=== PATIENT | female | born 1940 | race Caucasian/White ===

== ENCOUNTER 2020-01-29 23:32 | Emergency (ER) | payer MEDICARE, SELFPAY ==
[2020-01-29 23:46] VITALS: BP 166/75; PULSE 100; RESP 18; TEMP 36.6; O2SAT 96; BMI 25.8
[2020-01-30] VITALS (10 sets, daily range): BP systolic 113–154; BP diastolic 53–87; PULSE 59–91; RESP 14–18; O2SAT 93–98
--- NOTE | 2020-01-30 | CTR_ITS ---
PROCEDURE INFORMATION: Exam: CT Head Without Contrast Exam date and time: 01/30/2020 12:04 AM Age: 79 years old Clinical indication: Altered mental status/memory loss; Confusion or disorientation; Patient HX: Ams/confusion TECHNIQUE: Imaging protocol: Computed tomography of the head without contrast. Radiation optimization: All CT scans at this facility use at least one of these dose optimization techniques: automated exposure control; mA and/or kV adjustment per patient size (includes targeted exams where dose is matched to clinical indication); or iterative reconstruction. COMPARISON: CT head wo con* [id number] 07/22/2013 5:21 PM RADIATION DOSE METRICS: Total DLP (mGy-cm): 636.44 FINDINGS: Brain: Currently no visible evidence of acute intracranial pathologic process, trauma, or hemorrhage. 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 No mass effect. No generalized edema. No midline shift. Atrophic changes not inconsistent with the patient's chronological age. Ventricles: No ventriculomegaly. Bones/joints: Unremarkable. No acute fracture. Sinuses: Visualized sinuses are unremarkable. No fluid levels. Mastoid air cells: Visualized mastoid air cells are well aerated. Soft tissues: Unremarkable. CT/CT head wo con* [id number] IMPRESSION: No acute intracranial abnormality. Radiation Dose CTDIVOL = (mGy): DLP = 636.44 (mGy-cm)
--- NOTE | 2020-01-30 00:18 | ED_ITS ---
Documented by User: HAILEY Gregory 01/30/20 03:34 HPI - Altered Mental Status General: Chief Complaint: Altered Mental Status Stated Complaint: CONFUSION Time Seen by Provider: 01/29/20 23:56 History of Present Illness: HPI narrative: Patient is a 79-year-old female who comes to the ED via EMS for confusion. Patient has a past medical history of dementia/Alzheimer's. The EMS were called out by patient's neighbors. Neighbors found patient wandering in her yard and she was saying she was confused and did not know where her home was. Neighbor then called EMS to come pick her up and take her here to the ED for evaluation. During history and physical exam patient was confused and was a poor historian. She had trouble following and answering my questions. Patient also had some visual hallucinations in the ED room and said she saw some numbers floating on the wall and asked if I saw them 2. Patient's arrived here in the ED and I was able to get more details about patient's history with him. He said that patient has been having symptoms of dementia and Alzheimer's starting approximately 6 years ago. He said patient's mother and sister had Alzheimer's as well. He says she is slowly progressed and gotten worse and worse. They have been for 51 years and he takes care of patient and she does not know who he is. He said that patient had a rough day today and some of her dimensional's symptoms were worse today. He said he helped patient get ready for bed and put her in bed for the night. He then fell asleep and was awakened by a call from the emergency department here stating that his is currently in the ED and was found out wandering outside. said this was the first time she left the house wandering at night. Associated symptoms: Reports visual hallucinations (She sees numbers floating on the wall.) Review of Systems Const: Denies: fever(s), chills or fatigue Eyes: Denies: change in vision or eye discomfort ENMT: Denies: throat pain, odynophagia, nasal discharge or nasal congestion Card: Denies: chest pain, palpitations, edema, swelling of feet/ankles, dyspnea on exertion or orthopnea Resp: Denies: dyspnea, productive cough or non-productive cough GI: Denies: abdominal pain, nausea, vomiting, diarrhea, constipation or hematochezia : Denies: flank pain, dysuria or hematuria Musc: Denies: neck pain, back pain or extremity swelling Skin/Breast: Denies: rash or new lesions Neuro: Reports: confusion and difficulty communicating thoughts; Denies: headache(s), numbness in extremities or weakness in extremities Psych: Reports: visual hallucinations (She sees numbers floating on the wall.) Physical Exam Const: ORIENTATION/CONSCIOUSNESS: Yes oriented to person; not oriented to place and not oriented to time HENMT: COMMON NORMALS: normocephalic HEAD & SCALP: normocephalic MOUTH: Normal oral and palatal mucosa present THROAT: posterior oropharynx normal and uvula midline Neck/C-Spine: COMMON NORMALS: supple GENERAL: Yes normal visual inspection Resp: COMMON NORMALS: normal respiratory effort, No retractions, No use of accessory muscles and clear to auscultation bilaterally AUSCULTATION: clear to auscultation bilaterally Cardio: COMMON NORMALS: regular rate, regular rhythm, S1 normal heart sound present, S2 normal heart sound present, No gallops present (Cardio), No clicks present (Cardio), No murmurs present (Cardio) and Peripheral pulses 2+ throughout RATE: regular rate RHYTHM: regular rhythm HEART SOUNDS: S1 normal heart sound present and S2 normal heart sound present PERIPHERAL PULSES: Peripheral pulses 2+ throughout GI: COMMON NORMALS: Normal to inspection, nondistended, normoactive bowel sounds present, Soft to palpation, non-tender and no masses PALPATION: Yes Soft to palpation : COMMON NORMALS: Yes no CVA tenderness BLADDER/KIDNEY EXAM: Yes no CVA tenderness Back/Pelvis: COMMON NORMALS: no CVA tenderness Extremity: COMMON NORMALS: normal to inspection and no pedal edema Neuro: ENMA COMA SCALE: document GCS findings Kingman coma scale eye opening: Spontaneous Enma coma scale verbal response: Confused Kingman coma scale motor response: Obey commands Kingman coma scale total score: 14 COMMON NORMALS: CN's II-XII intact bilaterally, moves all extremities, no focal motor deficits and no sensory deficits noted SENSORIUM/ORIENTATION: Yes oriented to person, No oriented to place, No oriented to time and Yes Orientation impaired (Patient was oriented to person but was impaired with time and place questions.) COORDINATION/BALANCE: [id number] test normal (Patient was able to his likely perform the test, but did struggle understanding my instructions.) SENSORY EXAM: Yes extremities (sensation intact) MOTOR EXAM: 5/5 motor strength present throughout COORDINATION: [id number] test normal (Patient was able to his likely perform the test, but did struggle understanding my instructions.) OTHER: During physical exam patient was confused and had trouble answering some of my questions. She was able to follow most of my instructions during the exam but struggled with certain instructions that involved multiple steps. Psych: THOUGHT PROCESS: confused THOUGHT CONTENT: Yes Hallucination(s) present visual (Patient was asking me if I saw numbers floating on the wall.) Skin: COMMON NORMALS: no rashes or lesions noted GENERAL SKIN EXAM: no rashes or lesions noted Course Reevaluation(s): Reevaluation #1: Patient is starting to act out and wandering the halls. Discussed with about power of insurance defense attorney and he states that he does not have power of insurance defense attorney for patient. I talked with Dr. Miller and patient is going to be put on a 96-hour hold. Time: 03:14 Vital Signs: Vital signs: Vital Signs Temperature 97.8 F 01/29/20 23:46 Pulse Rate 67 01/30/20 13:00 Respiratory Rate 18 01/30/20 13:00 Blood Pressure 124/72 01/30/20 13:00 Pulse Oximetry 93 01/30/20 13:00 MDM - Altered Mental Status MDM Narrative: Medical decision making narrative: Patient is a 79-year-old female comes to the ED via EMS for confusion. Patient was found outside in her neighborhood wandering and did not know how to get home. Patient's was made aware and came to the ED. said that patient has been struggling with Alzheimer's/dementia for the past 6 years. He says it has progressed and gotten worse. does not have power of insurance defense attorney over . Here in the ED patient was very confused and started acting out and wandering here in the ED. CT of the head showed no acute findings, CBC, CMP and UA were unremarkable. has been watching and taking care of patient and he said he is not sure how to take care of her anymore as her Alzheimer's/dementia has progressed. 96- hour hold paperwork will be filled out on patient. Lab Data: Attestation: I reviewed the patient's lab results. Labs: Lab Results 01/30/20 01/30/20 01/30/20 Range/Units 02:10 02:10 02:10 WBC 5.2 (4.0-10.0) 10^3/ uL RBC 4.44 (4.1-5.3) 10^6/u L Hgb 13.8 (11.5-15.3) g/dL Hct 41.5 (37.0-47.0) % MCV 93.5 (81-99) fL MCH 31.1 (28.0-34.0) pg MCHC 33.3 (30.0-36.0) g/dL RDW 12.7 (12.1-15.1) % Plt Count 183 (130-400) 10^3/c mm MPV 11.5 H (7.4-10.4) fL Neut % (Auto) 62.0 % Lymph % (Auto) 23.7 % Jewell % (Auto) 11.4 % Eos % (Auto) 1.7 % Baso % (Auto) 1.0 % Neut # (Auto) 3.22 (1.8-7.7) 10^3/u L Lymph # (Auto) 1.2 (0.8-4.8) 10^3/u L Jewell # (Auto) 0.6 (0.2-0.9) 10^3/u L Eos # (Auto) 0.1 (0.0-0.8) 10^3/u L Baso # (Auto) 0.1 (0.0-0.1) 10^3/u L Nucleated RBC % (a uto) 0 % Nucleated RBCs # 0.0 /100WBC Sodium 139 (136-145) mmol/L Potassium 3.9 (3.5-5.1) mmol/L Chloride 104 (98-107) mmol/L Carbon Dioxide 22 (22-29) mmol/L Anion Gap 16.9 (5-19) BUN 18 (8-23) mg/dL Creatinine 0.7 (0.5-0.9) mg/dL GFR Calculation Not Reportable Glucose 172 H (65-115) mg/dL Calculated Osmolal ity 289 (285-295) mOsm/k g Calcium 9.7 (8.5-10.5) mg/dL Total Bilirubin 0.5 (0.15-1.2) mg/dL AST 31 (0-32) U/L ALT 37 H (0-33) U/L Alkaline Phosphata se 75 (35-105) IU/L Total Protein 7.8 (6.6-8.7) g/dL Albumin 4.6 (3.5-5.2) g/dL Globulin 3.2 (1.3-4.6) g/dL TSH (0.27-4.20) uIU/ mL Urine Color Yellow (Yellow) Urine Appearance Clear (CLEAR) Urine pH 5 (5-7) Ur Specific Gravit y 1.030 (1.005-1.030) Urine Protein Neg (Negative) Urine Glucose (UA) 2+ (Normal) Urine Ketones 1+ H (Negative) Urine Blood 2+ H (Negative) Urine Nitrate Negative (Negative) Urine Bilirubin Neg (NEGATIVE) Urine Urobilinogen Norm (Negative) mg/dL Ur Leukocyte Ember ase Trace H (Negative) Urine RBC 5-10 H (0-2) /hpf Urine WBC 0-4 H (0-5) /hpf Ur Squamous Epith Cells 5-10 H (0-5) Calcium Oxalate Cr ystal 40-55 H /hpf Amorphous Sediment 1+ Urine Bacteria Trace (NONE) Hyaline Casts 0-4 H Coarse Granular Ca sts 0-4 H /lpf Urine Mucus 2+ Salicylates (3-10) mg/dL Urine Opiates Scre en (Negative) ng/mL Acetaminophen (10-30) ug/mL Ur Barbiturates Sc reen (Negative) ng/mL Ur Phencyclidine S crn (Negative) ng/mL Ur Amphetamines Sc reen (Negative) ng/mL U Benzodiazepines Scrn (Negative) ng/mL Urine Cocaine Scre en (Negative) ng/mL U Marijuana (THC) Screen (Negative) ng/mL SARS-CoV-2 Ag (Rap id) (Negative) 01/30/20 01/30/20 01/30/20 Range/Units 02:10 02:10 02:10 WBC (4.0-10.0) 10^3/ uL RBC (4.1-5.3) 10^6/u L Hgb (11.5-15.3) g/dL Hct (37.0-47.0) % MCV (81-99) fL MCH (28.0-34.0) pg MCHC (30.0-36.0) g/dL RDW (12.1-15.1) % Plt Count (130-400) 10^3/c mm MPV (7.4-10.4) fL Neut % (Auto) % Lymph % (Auto) % Jewell % (Auto) % Eos % (Auto) % Baso % (Auto) % Neut # (Auto) (1.8-7.7) 10^3/u L Lymph # (Auto) (0.8-4.8) 10^3/u L Jewell # (Auto) (0.2-0.9) 10^3/u L Eos # (Auto) (0.0-0.8) 10^3/u L Baso # (Auto) (0.0-0.1) 10^3/u L Nucleated RBC % (a uto) % Nucleated RBCs # /100WBC Sodium (136-145) mmol/L Potassium (3.5-5.1) mmol/L Chloride (98-107) mmol/L Carbon Dioxide (22-29) mmol/L Anion Gap (5-19) BUN (8-23) mg/dL Creatinine (0.5-0.9) mg/dL GFR Calculation Glucose (65-115) mg/dL Calculated Osmolal ity (285-295) mOsm/k g Calcium (8.5-10.5) mg/dL Total Bilirubin (0.15-1.2) mg/dL AST (0-32) U/L ALT (0-33) U/L Alkaline Phosphata se (35-105) IU/L Total Protein (6.6-8.7) g/dL Albumin (3.5-5.2) g/dL Globulin (1.3-4.6) g/dL TSH 2.98 (0.27-4.20) uIU/ mL Urine Color (Yellow) Urine Appearance (CLEAR) Urine pH (5-7) Ur Specific Gravit y (1.005-1.030) Urine Protein (Negative) Urine Glucose (UA) (Normal) Urine Ketones (Negative) Urine Blood (Negative) Urine Nitrate (Negative) Urine Bilirubin (NEGATIVE) Urine Urobilinogen (Negative) mg/dL Ur Leukocyte Ember ase (Negative) Urine RBC (0-2) /hpf Urine WBC (0-5) /hpf Ur Squamous Epith Cells (0-5) Calcium Oxalate Cr ystal /hpf Amorphous Sediment Urine Bacteria (NONE) Hyaline Casts Coarse Granular Ca sts /lpf Urine Mucus Salicylates < 0.3 L (3-10) mg/dL Urine Opiates Scre en Negative (Negative) ng/mL Acetaminophen < 5.0 L (10-30) ug/mL Ur Barbiturates Sc reen Negative (Negative) ng/mL Ur Phencyclidine S crn Negative (Negative) ng/mL Ur Amphetamines Sc reen Negative (Negative) ng/mL U Benzodiazepines Scrn Negative (Negative) ng/mL Urine Cocaine Scre en Negative (Negative) ng/mL U Marijuana (THC) Screen Negative (Negative) ng/mL SARS-CoV-2 Ag (Rap id) (Negative) 01/30/20 Range/Units 06:30 WBC (4.0-10.0) 10^3/ uL RBC (4.1-5.3) 10^6/u L Hgb (11.5-15.3) g/dL Hct (37.0-47.0) % MCV (81-99) fL MCH (28.0-34.0) pg MCHC (30.0-36.0) g/dL RDW (12.1-15.1) % Plt Count (130-400) 10^3/c mm MPV (7.4-10.4) fL Neut % (Auto) % Lymph % (Auto) % Jewell % (Auto) % Eos % (Auto) % Baso % (Auto) % Neut # (Auto) (1.8-7.7) 10^3/u L Lymph # (Auto) (0.8-4.8) 10^3/u L Jewell # (Auto) (0.2-0.9) 10^3/u L Eos # (Auto) (0.0-0.8) 10^3/u L Baso # (Auto) (0.0-0.1) 10^3/u L Nucleated RBC % (a uto) % Nucleated RBCs # /100WBC Sodium (136-145) mmol/L Potassium (3.5-5.1) mmol/L Chloride (98-107) mmol/L Carbon Dioxide (22-29) mmol/L Anion Gap (5-19) BUN (8-23) mg/dL Creatinine (0.5-0.9) mg/dL GFR Calculation Glucose (65-115) mg/dL Calculated Osmolal ity (285-295) mOsm/k g Calcium (8.5-10.5) mg/dL Total Bilirubin (0.15-1.2) mg/dL AST (0-32) U/L ALT (0-33) U/L Alkaline Phosphata se (35-105) IU/L Total Protein (6.6-8.7) g/dL Albumin (3.5-5.2) g/dL Globulin (1.3-4.6) g/dL TSH (0.27-4.20) uIU/ mL Urine Color (Yellow) Urine Appearance (CLEAR) Urine pH (5-7) Ur Specific Gravit y (1.005-1.030) Urine Protein (Negative) Urine Glucose (UA) (Normal) Urine Ketones (Negative) Urine Blood (Negative) Urine Nitrate (Negative) Urine Bilirubin (NEGATIVE) Urine Urobilinogen (Negative) mg/dL Ur Leukocyte Ember ase (Negative) Urine RBC (0-2) /hpf Urine WBC (0-5) /hpf Ur Squamous Epith Cells (0-5) Calcium Oxalate Cr ystal /hpf Amorphous Sediment Urine Bacteria (NONE) Hyaline Casts Coarse Granular Ca sts /lpf Urine Mucus Salicylates (3-10) mg/dL Urine Opiates Scre en (Negative) ng/mL Acetaminophen (10-30) ug/mL Ur Barbiturates Sc reen (Negative) ng/mL Ur Phencyclidine S crn (Negative) ng/mL Ur Amphetamines Sc reen (Negative) ng/mL U Benzodiazepines Scrn (Negative) ng/mL Urine Cocaine Scre en (Negative) ng/mL U Marijuana (THC) Screen (Negative) ng/mL SARS-CoV-2 Ag (Rap id) Negative (Negative) Imaging Data^: CT Head: Attestation: I personally reviewed and interpreted this imaging study as follows: Radiologist's impression: [address] [place] [address] CT Scan Report Signed Patient: Maria Ines Jackson Unit #: [id number] : [id number] Age/Sex: 79 / F ADM Date: 01/29/20 Loc: ER Room/Bed: Attending Dr: Ordering Provider/Ordering MD: Jae Muller Date of Service: 01/30/20 Procedure(s): CT head wo con* [id number] Accession Number(s): [id number] Report Number: [id number] PROCEDURE INFORMATION: Exam: CT Head Without Contrast Exam date and time: 01/30/2020 12:04 AM Age: 79 years old Clinical indication: Altered mental status/memory loss; Confusion or disorientation; Patient HX: Ams/confusion TECHNIQUE: Imaging protocol: Computed tomography of the head without contrast. Radiation optimization: All CT scans at this facility use at least one of these dose optimization techniques: automated exposure control; mA and/or kV adjustment per patient size (includes targeted exams where dose is matched to clinical indication); or iterative reconstruction. COMPARISON: CT head wo con* [id number] 07/22/2013 5:21 PM RADIATION DOSE METRICS: Total DLP (mGy-cm): 636.44 FINDINGS: Brain: Currently no visible evidence of acute intracranial pathologic process, trauma, or hemorrhage. 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 No mass effect. No generalized edema. No midline shift. Atrophic changes not inconsistent with the patient's chronological age. Ventricles: No ventriculomegaly. Bones/joints: Unremarkable. No acute fracture. Sinuses: Visualized sinuses are unremarkable. No fluid levels. Mastoid air cells: Visualized mastoid air cells are well aerated. Soft tissues: Unremarkable. CT/CT head wo con* [id number] IMPRESSION: No acute intracranial abnormality. Radiation Dose CTDIVOL = (mGy): DLP = 636.44 (mGy-cm) Dictated By: Devin Velazquez Signed By: Devin Velazquez Signed Date/Time: 01/30/2037 DD/ CXR: Attestation: I personally reviewed and interpreted this imaging study as follows: My impression: no acute findings. Discharge Plan Discharge Patient Disposition: Xfer Other Clinical Impression: Dementia, Hallucinations Condition: Stable Discharge Orders: Discharge Order (Routine); Ordered 01/30/20 Ordered By: Jae Muller Patient Instructions: Alzheimer Disease (GEN), Dementia (ED) Activity Restrictions/Additional Instructions: Follow-up with medical provider as directed in 5 to 7 days for reevaluation. Discussed with your doctor about options of medical management for Alzheimer's/dementia. Continue taking home medications as previously prescribed. Return to the ER or your medical provider if condition worsens. Please read and understand discharge instructions. If any questions, please ask. Sign Out Sign Out Data: Patient Sign Out occurred on 01/30/20 at 06:41. Patient's care was discussed, and care was transferred from to Nicole Pollack. Coding Level of Care Code ED Weigher And Crusher for 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 Documented by User: Dennis Miller DO 01/30/20 05:44 HPI - Altered Mental Status General: Chief Complaint: Altered Mental Status Stated Complaint: CONFUSION Time Seen by Provider: 01/29/20 23:56 Course Vital Signs: Vital signs: Vital Signs Temperature 97.8 F 01/29/20 23:46 Pulse Rate 67 01/30/20 13:00 Respiratory Rate 18 01/30/20 13:00 Blood Pressure 124/72 01/30/20 13:00 Pulse Oximetry 93 01/30/20 13:00 MDM - Altered Mental Status MDM Narrative: Medical decision making narrative: 79-year-old lady with a history of dementia. She was originally seen by Mr. Yohana PA-C. I agree with his history, evaluation, and work-up. This lady has had worsening dementia for [address] head is negative for acute problems. Her laboratory is benign. Her urinalysis is negative. As said above, this is the first time she is left the house at night, which is dangerous for her. She is at this point a danger to herself, and her her is somewhat frail. He cannot handle her at home like this. Medically, she is stable. We will try to find this patient a geriatric psychiatry bed. She will need treatment, and possibly placement in a long-term care facility. As my shift is ending, will be checked out to Dr. Pollack at shift change. Lab Data: Labs: Lab Results 01/30/20 01/30/20 01/30/20 Range/Units 02:10 02:10 02:10 WBC 5.2 (4.0-10.0) 10^3/ uL RBC 4.44 (4.1-5.3) 10^6/u L Hgb 13.8 (11.5-15.3) g/dL Hct 41.5 (37.0-47.0) % MCV 93.5 (81-99) fL MCH 31.1 (28.0-34.0) pg MCHC 33.3 (30.0-36.0) g/dL RDW 12.7 (12.1-15.1) % Plt Count 183 (130-400) 10^3/c mm MPV 11.5 H (7.4-10.4) fL Neut % (Auto) 62.0 % Lymph % (Auto) 23.7 % Jewell % (Auto) 11.4 % Eos % (Auto) 1.7 % Baso % (Auto) 1.0 % Neut # (Auto) 3.22 (1.8-7.7) 10^3/u L Lymph # (Auto) 1.2 (0.8-4.8) 10^3/u L Jewell # (Auto) 0.6 (0.2-0.9) 10^3/u L Eos # (Auto) 0.1 (0.0-0.8) 10^3/u L Baso # (Auto) 0.1 (0.0-0.1) 10^3/u L Nucleated RBC % (a uto) 0 % Nucleated RBCs # 0.0 /100WBC Sodium 139 (136-145) mmol/L Potassium 3.9 (3.5-5.1) mmol/L Chloride 104 (98-107) mmol/L Carbon Dioxide 22 (22-29) mmol/L Anion Gap 16.9 (5-19) BUN 18 (8-23) mg/dL Creatinine 0.7 (0.5-0.9) mg/dL GFR Calculation Not Reportable Glucose 172 H (65-115) mg/dL Calculated Osmolal ity 289 (285-295) mOsm/k g Calcium 9.7 (8.5-10.5) mg/dL Total Bilirubin 0.5 (0.15-1.2) mg/dL AST 31 (0-32) U/L ALT 37 H (0-33) U/L Alkaline Phosphata se 75 (35-105) IU/L Total Protein 7.8 (6.6-8.7) g/dL Albumin 4.6 (3.5-5.2) g/dL Globulin 3.2 (1.3-4.6) g/dL TSH (0.27-4.20) uIU/ mL Urine Color Yellow (Yellow) Urine Appearance Clear (CLEAR) Urine pH 5 (5-7) Ur Specific Gravit y 1.030 (1.005-1.030) Urine Protein Neg (Negative) Urine Glucose (UA) 2+ (Normal) Urine Ketones 1+ H (Negative) Urine Blood 2+ H (Negative) Urine Nitrate Negative (Negative) Urine Bilirubin Neg (NEGATIVE) Urine Urobilinogen Norm (Negative) mg/dL Ur Leukocyte Ember ase Trace H (Negative) Urine RBC 5-10 H (0-2) /hpf Urine WBC 0-4 H (0-5) /hpf Ur Squamous Epith Cells 5-10 H (0-5) Calcium Oxalate Cr ystal 40-55 H /hpf Amorphous Sediment 1+ Urine Bacteria Trace (NONE) Hyaline Casts 0-4 H Coarse Granular Ca sts 0-4 H /lpf Urine Mucus 2+ Salicylates (3-10) mg/dL Urine Opiates Scre en (Negative) ng/mL Acetaminophen (10-30) ug/mL Ur Barbiturates Sc reen (Negative) ng/mL Ur Phencyclidine S crn (Negative) ng/mL Ur Amphetamines Sc reen (Negative) ng/mL U Benzodiazepines Scrn (Negative) ng/mL Urine Cocaine Scre en (Negative) ng/mL U Marijuana (THC) Screen (Negative) ng/mL SARS-CoV-2 Ag (Rap id) (Negative) 01/30/20 01/30/20 01/30/20 Range/Units 02:10 02:10 02:10 WBC (4.0-10.0) 10^3/ uL RBC (4.1-5.3) 10^6/u L Hgb (11.5-15.3) g/dL Hct (37.0-47.0) % MCV (81-99) fL MCH (28.0-34.0) pg MCHC (30.0-36.0) g/dL RDW (12.1-15.1) % Plt Count (130-400) 10^3/c mm MPV (7.4-10.4) fL Neut % (Auto) % Lymph % (Auto) % Jewell % (Auto) % Eos % (Auto) % Baso % (Auto) % Neut # (Auto) (1.8-7.7) 10^3/u L Lymph # (Auto) (0.8-4.8) 10^3/u L Jewell # (Auto) (0.2-0.9) 10^3/u L Eos # (Auto) (0.0-0.8) 10^3/u L Baso # (Auto) (0.0-0.1) 10^3/u L Nucleated RBC % (a uto) % Nucleated RBCs # /100WBC Sodium (136-145) mmol/L Potassium (3.5-5.1) mmol/L Chloride (98-107) mmol/L Carbon Dioxide (22-29) mmol/L Anion Gap (5-19) BUN (8-23) mg/dL Creatinine (0.5-0.9) mg/dL GFR Calculation Glucose (65-115) mg/dL Calculated Osmolal ity (285-295) mOsm/k g Calcium (8.5-10.5) mg/dL Total Bilirubin (0.15-1.2) mg/dL AST (0-32) U/L ALT (0-33) U/L Alkaline Phosphata se (35-105) IU/L Total Protein (6.6-8.7) g/dL Albumin (3.5-5.2) g/dL Globulin (1.3-4.6) g/dL TSH 2.98 (0.27-4.20) uIU/ mL Urine Color (Yellow) Urine Appearance (CLEAR) Urine pH (5-7) Ur Specific Gravit y (1.005-1.030) Urine Protein (Negative) Urine Glucose (UA) (Normal) Urine Ketones (Negative) Urine Blood (Negative) Urine Nitrate (Negative) Urine Bilirubin (NEGATIVE) Urine Urobilinogen (Negative) mg/dL Ur Leukocyte Ember ase (Negative) Urine RBC (0-2) /hpf Urine WBC (0-5) /hpf Ur Squamous Epith Cells (0-5) Calcium Oxalate Cr ystal /hpf Amorphous Sediment Urine Bacteria (NONE) Hyaline Casts Coarse Granular Ca sts /lpf Urine Mucus Salicylates < 0.3 L (3-10) mg/dL Urine Opiates Scre en Negative (Negative) ng/mL Acetaminophen < 5.0 L (10-30) ug/mL Ur Barbiturates Sc reen Negative (Negative) ng/mL Ur Phencyclidine S crn Negative (Negative) ng/mL Ur Amphetamines Sc reen Negative (Negative) ng/mL U Benzodiazepines Scrn Negative (Negative) ng/mL Urine Cocaine Scre en Negative (Negative) ng/mL U Marijuana (THC) Screen Negative (Negative) ng/mL SARS-CoV-2 Ag (Rap id) (Negative) 01/30/20 Range/Units 06:30 WBC (4.0-10.0) 10^3/ uL RBC (4.1-5.3) 10^6/u L Hgb (11.5-15.3) g/dL Hct (37.0-47.0) % MCV (81-99) fL MCH (28.0-34.0) pg MCHC (30.0-36.0) g/dL RDW (12.1-15.1) % Plt Count (130-400) 10^3/c mm MPV (7.4-10.4) fL Neut % (Auto) % Lymph % (Auto) % Jewell % (Auto) % Eos % (Auto) % Baso % (Auto) % Neut # (Auto) (1.8-7.7) 10^3/u L Lymph # (Auto) (0.8-4.8) 10^3/u L Jewell # (Auto) (0.2-0.9) 10^3/u L Eos # (Auto) (0.0-0.8) 10^3/u L Baso # (Auto) (0.0-0.1) 10^3/u L Nucleated RBC % (a uto) % Nucleated RBCs # /100WBC Sodium (136-145) mmol/L Potassium (3.5-5.1) mmol/L Chloride (98-107) mmol/L Carbon Dioxide (22-29) mmol/L Anion Gap (5-19) BUN (8-23) mg/dL Creatinine (0.5-0.9) mg/dL GFR Calculation Glucose (65-115) mg/dL Calculated Osmolal ity (285-295) mOsm/k g Calcium (8.5-10.5) mg/dL Total Bilirubin (0.15-1.2) mg/dL AST (0-32) U/L ALT (0-33) U/L Alkaline Phosphata se (35-105) IU/L Total Protein (6.6-8.7) g/dL Albumin (3.5-5.2) g/dL Globulin (1.3-4.6) g/dL TSH (0.27-4.20) uIU/ mL Urine Color (Yellow) Urine Appearance (CLEAR) Urine pH (5-7) Ur Specific Gravit y (1.005-1.030) Urine Protein (Negative) Urine Glucose (UA) (Normal) Urine Ketones (Negative) Urine Blood (Negative) Urine Nitrate (Negative) Urine Bilirubin (NEGATIVE) Urine Urobilinogen (Negative) mg/dL Ur Leukocyte Ember ase (Negative) Urine RBC (0-2) /hpf Urine WBC (0-5) /hpf Ur Squamous Epith Cells (0-5) Calcium Oxalate Cr ystal /hpf Amorphous Sediment Urine Bacteria (NONE) Hyaline Casts Coarse Granular Ca sts /lpf Urine Mucus Salicylates (3-10) mg/dL Urine Opiates Scre en (Negative) ng/mL Acetaminophen (10-30) ug/mL Ur Barbiturates Sc reen (Negative) ng/mL Ur Phencyclidine S crn (Negative) ng/mL Ur Amphetamines Sc reen (Negative) ng/mL U Benzodiazepines Scrn (Negative) ng/mL Urine Cocaine Scre en (Negative) ng/mL U Marijuana (THC) Screen (Negative) ng/mL SARS-CoV-2 Ag (Rap id) Negative (Negative) Discharge Plan Discharge Patient Disposition: Xfer Other Clinical Impression: Dementia, Hallucinations Condition: Stable Discharge Orders: Discharge Order (Routine); Ordered 01/30/20 Ordered By: Jae Muller Patient Instructions: Alzheimer Disease (GEN), Dementia (ED) Activity Restrictions/Additional Instructions: Follow-up with medical provider as directed in 5 to 7 days for reevaluation. Discussed with your doctor about options of medical management for Alzheimer's/dementia. Continue taking home medications as previously prescribed. Return to the ER or your medical provider if condition worsens. Please read and understand discharge instructions. If any questions, please ask. Sign Out Sign Out Data: Patient Sign Out occurred on 01/30/20 at 06:41. Patient's care was discussed, and care was transferred from to Nicole Pollack. Coding Level of Care Code ED Weigher And Crusher for 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 Documented by User: Nicole Pollack 01/30/20 13:23 HPI - Altered Mental Status General: Chief Complaint: Altered Mental Status Stated Complaint: CONFUSION Time Seen by Provider: 01/29/20 23:56 Course Vital Signs: Vital signs: Vital Signs Temperature 97.8 F 01/29/20 23:46 Pulse Rate 67 01/30/20 13:00 Respiratory Rate 18 01/30/20 13:00 Blood Pressure 124/72 01/30/20 13:00 Pulse Oximetry 93 01/30/20 13:00 MDM - Altered Mental Status MDM Narrative: Medical decision making narrative: 0708 -care seen by me at change of shift from Dr. Miller. Please see his note along with Jae Muller's note for their history, physical exam and medical decision-making notes. Currently the patient is resting comfortably. She has no complaints or symptoms. Still awaiting a few labs to completely medically clear her and nursing plans to begin looking for [place] psychiatric placement. Patient will likely need this as he has dementia with acute decompensation with wandering outside the home and hallucinations. Patient is medically cleared for her labs. He is asymptomatic when it comes to covert infections. Her rapid test is negative here. She is safe for transfer and psychiatric hospitalization. Nursing will continue to look for placement. 1322 -the case was reviewed with Mr. Jennifer HART and Dr. Weinberg, they agreed accept the patient in transfer. Lab Data: Labs: Lab Results 01/30/20 01/30/20 01/30/20 Range/Units 02:10 02:10 02:10 WBC 5.2 (4.0-10.0) 10^3/ uL RBC 4.44 (4.1-5.3) 10^6/u L Hgb 13.8 (11.5-15.3) g/dL Hct 41.5 (37.0-47.0) % MCV 93.5 (81-99) fL MCH 31.1 (28.0-34.0) pg MCHC 33.3 (30.0-36.0) g/dL RDW 12.7 (12.1-15.1) % Plt Count 183 (130-400) 10^3/c mm MPV 11.5 H (7.4-10.4) fL Neut % (Auto) 62.0 % Lymph % (Auto) 23.7 % Jewell % (Auto) 11.4 % Eos % (Auto) 1.7 % Baso % (Auto) 1.0 % Neut # (Auto) 3.22 (1.8-7.7) 10^3/u L Lymph # (Auto) 1.2 (0.8-4.8) 10^3/u L Jewell # (Auto) 0.6 (0.2-0.9) 10^3/u L Eos # (Auto) 0.1 (0.0-0.8) 10^3/u L Baso # (Auto) 0.1 (0.0-0.1) 10^3/u L Nucleated RBC % (a uto) 0 % Nucleated RBCs # 0.0 /100WBC Sodium 139 (136-145) mmol/L Potassium 3.9 (3.5-5.1) mmol/L Chloride 104 (98-107) mmol/L Carbon Dioxide 22 (22-29) mmol/L Anion Gap 16.9 (5-19) BUN 18 (8-23) mg/dL Creatinine 0.7 (0.5-0.9) mg/dL GFR Calculation Not Reportable Glucose 172 H (65-115) mg/dL Calculated Osmolal ity 289 (285-295) mOsm/k g Calcium 9.7 (8.5-10.5) mg/dL Total Bilirubin 0.5 (0.15-1.2) mg/dL AST 31 (0-32) U/L ALT 37 H (0-33) U/L Alkaline Phosphata se 75 (35-105) IU/L Total Protein 7.8 (6.6-8.7) g/dL Albumin 4.6 (3.5-5.2) g/dL Globulin 3.2 (1.3-4.6) g/dL TSH (0.27-4.20) uIU/ mL Urine Color Yellow (Yellow) Urine Appearance Clear (CLEAR) Urine pH 5 (5-7) Ur Specific Gravit y 1.030 (1.005-1.030) Urine Protein Neg (Negative) Urine Glucose (UA) 2+ (Normal) Urine Ketones 1+ H (Negative) Urine Blood 2+ H (Negative) Urine Nitrate Negative (Negative) Urine Bilirubin Neg (NEGATIVE) Urine Urobilinogen Norm (Negative) mg/dL Ur Leukocyte Ember ase Trace H (Negative) Urine RBC 5-10 H (0-2) /hpf Urine WBC 0-4 H (0-5) /hpf Ur Squamous Epith Cells 5-10 H (0-5) Calcium Oxalate Cr ystal 40-55 H /hpf Amorphous Sediment 1+ Urine Bacteria Trace (NONE) Hyaline Casts 0-4 H Coarse Granular Ca sts 0-4 H /lpf Urine Mucus 2+ Salicylates (3-10) mg/dL Urine Opiates Scre en (Negative) ng/mL Acetaminophen (10-30) ug/mL Ur Barbiturates Sc reen (Negative) ng/mL Ur Phencyclidine S crn (Negative) ng/mL Ur Amphetamines Sc reen (Negative) ng/mL U Benzodiazepines Scrn (Negative) ng/mL Urine Cocaine Scre en (Negative) ng/mL U Marijuana (THC) Screen (Negative) ng/mL SARS-CoV-2 Ag (Rap id) (Negative) 01/30/20 01/30/20 01/30/20 Range/Units 02:10 02:10 02:10 WBC (4.0-10.0) 10^3/ uL RBC (4.1-5.3) 10^6/u L Hgb (11.5-15.3) g/dL Hct (37.0-47.0) % MCV (81-99) fL MCH (28.0-34.0) pg MCHC (30.0-36.0) g/dL RDW (12.1-15.1) % Plt Count (130-400) 10^3/c mm MPV (7.4-10.4) fL Neut % (Auto) % Lymph % (Auto) % Jewell % (Auto) % Eos % (Auto) % Baso % (Auto) % Neut # (Auto) (1.8-7.7) 10^3/u L Lymph # (Auto) (0.8-4.8) 10^3/u L Jewell # (Auto) (0.2-0.9) 10^3/u L Eos # (Auto) (0.0-0.8) 10^3/u L Baso # (Auto) (0.0-0.1) 10^3/u L Nucleated RBC % (a uto) % Nucleated RBCs # /100WBC Sodium (136-145) mmol/L Potassium (3.5-5.1) mmol/L Chloride (98-107) mmol/L Carbon Dioxide (22-29) mmol/L Anion Gap (5-19) BUN (8-23) mg/dL Creatinine (0.5-0.9) mg/dL GFR Calculation Glucose (65-115) mg/dL Calculated Osmolal ity (285-295) mOsm/k g Calcium (8.5-10.5) mg/dL Total Bilirubin (0.15-1.2) mg/dL AST (0-32) U/L ALT (0-33) U/L Alkaline Phosphata se (35-105) IU/L Total Protein (6.6-8.7) g/dL Albumin (3.5-5.2) g/dL Globulin (1.3-4.6) g/dL TSH 2.98 (0.27-4.20) uIU/ mL Urine Color (Yellow) Urine Appearance (CLEAR) Urine pH (5-7) Ur Specific Gravit y (1.005-1.030) Urine Protein (Negative) Urine Glucose (UA) (Normal) Urine Ketones (Negative) Urine Blood (Negative) Urine Nitrate (Negative) Urine Bilirubin (NEGATIVE) Urine Urobilinogen (Negative) mg/dL Ur Leukocyte Ember ase (Negative) Urine RBC (0-2) /hpf Urine WBC (0-5) /hpf Ur Squamous Epith Cells (0-5) Calcium Oxalate Cr ystal /hpf Amorphous Sediment Urine Bacteria (NONE) Hyaline Casts Coarse Granular Ca sts /lpf Urine Mucus Salicylates < 0.3 L (3-10) mg/dL Urine Opiates Scre en Negative (Negative) ng/mL Acetaminophen < 5.0 L (10-30) ug/mL Ur Barbiturates Sc reen Negative (Negative) ng/mL Ur Phencyclidine S crn Negative (Negative) ng/mL Ur Amphetamines Sc reen Negative (Negative) ng/mL U Benzodiazepines Scrn Negative (Negative) ng/mL Urine Cocaine Scre en Negative (Negative) ng/mL U Marijuana (THC) Screen Negative (Negative) ng/mL SARS-CoV-2 Ag (Rap id) (Negative) 01/30/20 Range/Units 06:30 WBC (4.0-10.0) 10^3/ uL RBC (4.1-5.3) 10^6/u L Hgb (11.5-15.3) g/dL Hct (37.0-47.0) % MCV (81-99) fL MCH (28.0-34.0) pg MCHC (30.0-36.0) g/dL RDW (12.1-15.1) % Plt Count (130-400) 10^3/c mm MPV (7.4-10.4) fL Neut % (Auto) % Lymph % (Auto) % Jewell % (Auto) % Eos % (Auto) % Baso % (Auto) % Neut # (Auto) (1.8-7.7) 10^3/u L Lymph # (Auto) (0.8-4.8) 10^3/u L Jewell # (Auto) (0.2-0.9) 10^3/u L Eos # (Auto) (0.0-0.8) 10^3/u L Baso # (Auto) (0.0-0.1) 10^3/u L Nucleated RBC % (a uto) % Nucleated RBCs # /100WBC Sodium (136-145) mmol/L Potassium (3.5-5.1) mmol/L Chloride (98-107) mmol/L Carbon Dioxide (22-29) mmol/L Anion Gap (5-19) BUN (8-23) mg/dL Creatinine (0.5-0.9) mg/dL GFR Calculation Glucose (65-115) mg/dL Calculated Osmolal ity (285-295) mOsm/k g Calcium (8.5-10.5) mg/dL Total Bilirubin (0.15-1.2) mg/dL AST (0-32) U/L ALT (0-33) U/L Alkaline Phosphata se (35-105) IU/L Total Protein (6.6-8.7) g/dL Albumin (3.5-5.2) g/dL Globulin (1.3-4.6) g/dL TSH (0.27-4.20) uIU/ mL Urine Color (Yellow) Urine Appearance (CLEAR) Urine pH (5-7) Ur Specific Gravit y (1.005-1.030) Urine Protein (Negative) Urine Glucose (UA) (Normal) Urine Ketones (Negative) Urine Blood (Negative) Urine Nitrate (Negative) Urine Bilirubin (NEGATIVE) Urine Urobilinogen (Negative) mg/dL Ur Leukocyte Ember ase (Negative) Urine RBC (0-2) /hpf Urine WBC (0-5) /hpf Ur Squamous Epith Cells (0-5) Calcium Oxalate Cr ystal /hpf Amorphous Sediment Urine Bacteria (NONE) Hyaline Casts Coarse Granular Ca sts /lpf Urine Mucus Salicylates (3-10) mg/dL Urine Opiates Scre en (Negative) ng/mL Acetaminophen (10-30) ug/mL Ur Barbiturates Sc reen (Negative) ng/mL Ur Phencyclidine S crn (Negative) ng/mL Ur Amphetamines Sc reen (Negative) ng/mL U Benzodiazepines Scrn (Negative) ng/mL Urine Cocaine Scre en (Negative) ng/mL U Marijuana (THC) Screen (Negative) ng/mL SARS-CoV-2 Ag (Rap id) Negative (Negative) Discharge Plan Discharge Patient Disposition: Xfer Other Clinical Impression: Dementia, Hallucinations Condition: Stable Discharge Orders: Discharge Order (Routine); Ordered 01/30/20 Ordered By: Jae Muller Patient Instructions: Alzheimer Disease (GEN), Dementia (ED) Activity Restrictions/Additional Instructions: Follow-up with medical provider as directed in 5 to 7 days for reevaluation. Discussed with your doctor about options of medical management for Alzheimer's/dementia. Continue taking home medications as previously prescribed. Return to the ER or your medical provider if condition worsens. Please read and understand discharge instructions. If any questions, please ask. Sign Out Sign Out Data: Patient Sign Out occurred on 01/30/20 at 06:41. Patient's care was discussed, and care was transferred from to Nicole Pollack. Coding Level of Care Code ED Weigher And Crusher for Raul Fwd Exam Comprehensive
--- NOTE | 2020-01-30 02:01 | XRR_ITS ---
PROCEDURE INFORMATION: Exam: XR Chest, 1 View Exam date and time: 01/30/2020 2:36 AM Age: 79 years old Clinical indication: Other: AMS; Additional info: Confusion TECHNIQUE: Imaging protocol: XR of the chest Views: 1 view. COMPARISON: CT chest [facility] [id number] 08/17/2013 4:03 PM FINDINGS: Lungs: Unremarkable. No consolidation. Pleural space: Unremarkable. No pleural effusion. No pneumothorax. Heart/Mediastinum: Unremarkable. No cardiomegaly. Bones/joints: Unremarkable. Other findings: There is a partially calcified 13 mm nodularity present within the right lower hemithorax. This appears stable compared with a CT examination dated 08/17/2013. XR/XR chest 1V portable [id number] IMPRESSION: There are no acute chest findings.
[2020-01-30 02:35] LABS: Basophils # 0.1 10^3/uL (0.0-0.1); Eosinophils # 0.1 10^3/uL (0.0-0.8); Eosinophils % 1.7 %; Hematocrit 41.5 % (37.0-47.0); Hemoglobin 13.8 g/dL (11.5-15.3); Lymphocytes # 1.2 10^3/uL (0.8-4.8); Lymphocytes % 23.7 %; Mean Corpuscular HGB Conc 33.3 g/dL (30.0-36.0); Mean Corpuscular Hemoglobin 31.1 pg (28.0-34.0); Mean Corpuscular Volume 93.5 fL (81-99); Mean Platelet Volume 11.5 fL (7.4-10.4); Monocytes # 0.6 10^3/uL (0.2-0.9); Monocytes % 11.4 %; Neutrophils # 3.22 10^3/uL (1.8-7.7); Nucleated Red Blood Cells % 0 %; Platelet Count 183 10^3/cmm (130-400); Red Blood Count 4.44 10^6/uL (4.1-5.3); Red Cell Distribution Width 12.7 % (12.1-15.1); White Blood Count 5.2 10^3/uL (4.0-10.0)
[2020-01-30 02:51] LABS: Alanine Aminotransferase 37 U/L (0-33); Albumin Level 4.6 g/dL (3.5-5.2); Alkaline Phosphatase 75 IU/L (35-105); Anion Gap 16.9 (5-19); Aspartate Amino Transferase 31 U/L (0-32); Blood Urea Nitrogen 18 mg/dL (8-23); Calcium 9.7 mg/dL (8.5-10.5); Carbon Dioxide 22 mmol/L (22-29); Chloride 104 mmol/L (98-107); Globulin 3.2 g/dL (1.3-4.6); Glucose 172 mg/dL (65-115); Osmolality Calculated 289 mOsm/kg (285-295); Potassium 3.9 mmol/L (3.5-5.1); Sodium 139 mmol/L (136-145); Total Bilirubin 0.5 mg/dL (0.15-1.2); Total Protein 7.8 g/dL (6.6-8.7)
[2020-01-30 03:15] LABS: Bilirubin Urine Neg (NEGATIVE); Blood Urine 2+ (Negative); Glucose Urine UA 2+ (Normal); Ketones Urine 1+ (Negative); Leukocyte Esterase Urine Trace (Negative); Nitrate Urine Negative (Negative); Protein Urine Neg (Negative); Urine Appearance Clear (CLEAR); Urine Color Yellow (Yellow); Urobilinogen Urine Norm (Negative); pH Urine 5 (5-7)
[2020-01-30 03:20] LABS: Add Urine Culture? No; Amorphous Sediment Urine 1+; Bacteria Urine TRACE; Calcium Oxalate Crystals Urine 40-55 /hpf; Coarse Granular Casts Urine 0-4 /lpf; Hyaline Casts Urine 0-4; Mucus Urine 2+; WBC Urine 0-4 /hpf (0-5)
[2020-01-30] MEDS: LORazepam 2 mg/mL INJ 1 mL IM (03:49)
[2020-01-30] MEDS: ziprasidone 20 mg/mL SDV 10 MG IM (03:50)
--- NOTE | 2020-01-30 03:51 | ECG_ITS ---
[facility] Test Date: 2020-01-30 Pat Name: Maria Ines Jackson Department: Room: Gender: Female Supervisor Fabrication: : 1940 Requested By: Dennis Rowe Order Number: [id number] Saravanan MD: Candy Meng M.D. Measurements Intervals [place] Rate: 89 P: 63 GA: 218 QRS: 28 QRSD: 95 T: 82 QT: 416 QTc: 507 Interpretive Statements SINUS RHYTHM WITH FIRST DEGREE AV BLOCK POSSIBLE LEFT ATRIAL ENLARGEMENT [-0.1mV P WAVE IN V1/V2] NONSPECIFIC ST & T-WAVE ABNORMALITY PROLONGED QT INTERVAL No previous ECG available for comparison Electronically Signed On 01-31-2020 7:56:36 CDT by Candy Meng M.D. [id number]
[2020-01-30 05:05] LABS: Thyroid Stimulating Hormone 2.98 uIU/mL (0.27-4.20)
[2020-01-30 07:06] LABS: Amphetamines Screen Urine Negative (Negative); Barbiturates Screen Urine Negative (Negative); Benzodiazepines Screen Urine Negative (Negative); Cocaine Screen Urine Negative (Negative); Opiate Screen Urine Negative (Negative); PCP Screen Urine Negative (Negative); THC Screen Urine Negative (Negative)
[2020-01-30 07:34] LABS: SARS Covid-2 Antigen Negative (Negative)
[2020-01-30 07:51] LABS: Acetaminophen < 5.0 ug/mL (10-30); Salicylate < 0.3 mg/dL (3-10)
[2020-01-30] MEDS: cefdinir 300 MG CAPSULE PO (10:37)
--- NOTE | 2020-01-30 21:07 | PC.NURSE ---
awaiting EMS transport to [facility]
== END 2020-01-30 22:06 | disposition other institution (70) ==
PROVIDERS: Emergency Medicine; Physician Assistant; Emergency Provider Emergency Medicine
DX: F03.90 Unspecified dementia, unspecified severity, without behavioral disturbance, psychotic disturbance, mood disturbance, and anxiety (principal); R44.3 Hallucinations, unspecified
CPT/HCPCS: 12345; 70450; 71045; 80053; 80306; 80307; 81001; 84443; 85025; 87426; 93005; 96372; 99283; 99285; J2060; J3486

== ENCOUNTER 2020-06-04 06:39 | Emergency (ER) | payer MEDICARE, SELFPAY ==
[2020-06-04 06:39] VITALS: BP 196/69; PULSE 96; RESP 20; TEMP 36.5; O2SAT 98; BMI 27.2
--- NOTE | 2020-06-04 06:48 | ECG_ITS ---
[facility] Test Date: 2020-06-04 Pat Name: Maria Ines Jackson Department: Room: Gender: Female Physical Instructor: : 1940 Requested By: Madison Berry Order Number: [id number] Saravanan MD: Candy Meng M.D. Measurements Intervals [place] Rate: 81 P: 55 GA: 191 QRS: 19 QRSD: 97 T: 85 QT: 394 QTc: 459 Interpretive Statements SINUS RHYTHM WITH OCCASIONAL VENTRICULAR PREMATURE COMPLEXES NONSPECIFIC ST & T-WAVE ABNORMALITY Compared to ECG 01/30/2020 05:11:52 Ventricular premature complex(es) now present First degree AV block no longer present Prolonged QT interval no longer present T-wave abnormality still present Electronically Signed On 06-05-2020 17:27:14 HAND FLESHER by Candy Meng M.D. [id number]
[2020-06-04 06:58] LABS: Glucose Point of Care 154 mg/dL (70-110)
[2020-06-04 07:07] LABS: Basophils % 0.7 %; Eosinophils # 0.1 10^3/uL (0.0-0.8); Eosinophils % 2.3 %; Hematocrit 40.9 % (37.0-47.0); Hemoglobin 13.1 g/dL (11.5-15.3); Lymphocytes # 1.1 10^3/uL (0.8-4.8); Mean Corpuscular Volume 96.7 fL (81-99); Mean Platelet Volume 11.5 fL (7.4-10.4); Monocytes # 0.5 10^3/uL (0.2-0.9); Monocytes % 9.3 %; Neutrophils % 68.5 %; Nucleated Red Blood Cells % 0 %; Platelet Count 164 10^3/cmm (130-400); Red Blood Count 4.23 10^6/uL (4.1-5.3); Red Cell Distribution Width 12.9 % (12.1-15.1); White Blood Count 5.7 10^3/uL (4.0-10.0)
--- NOTE | 2020-06-04 07:16 | ED_ITS ---
HPI - Altered Mental Status General: Chief Complaint: Altered Mental Status Stated Complaint: CONFUSION Time Seen by Provider: 06/04/20 06:48 Source: patient, family, EMS and old records reviewed Mode of arrival: EMS Limitations: altered mental status History of Present Illness: HPI narrative: 80-year-old female brought in by EMS after she was found wandering on the street outside her home early this morning. She has history of Alzheimer's dementia, and is cared for at home by her . She was brought to the ED after being found wandering in January 2020, was transferred to [place] psychiatric unit [facility] where she was hospitalized for just under 2 weeks before being discharged home. This is the first time that she is wandered out of the house since then. Her denies any recent fevers, nausea, vomiting, complaints of pain, falls. She is eating and drinking normally. They have several children in the area who visit often. She does have difficulty settling at night, but refuses to take any of her medication. Her states that he does have alarms on the doors at home, they did go up repeatedly last night as she was trying to leave the house throughout the night, and he was able to stop her. He fell asleep early this morning, and was not woken up by the alarm at that time when she left the house. MD complaint: altered mental status and confusion Associated symptoms: Deny delusions Review of Systems General: Reports: ROS unobtainable due to mental status Const: Reports: change in sleep pattern; Denies: fever(s) or change in appetite Eyes: Denies: change in vision, eye discomfort or eye discharge Card: Denies: chest pain, palpitations or irregular heart rhythm Resp: Denies: dyspnea, productive cough or wheezing GI: Denies: nausea, vomiting or diarrhea : Denies: difficulty voiding, dysuria or urinary frequency Musc: Denies: extremity swelling, joint swelling or joint redness Skin/Breast: Reports: rash and pruritus Neuro: Reports: confusion, behavioral changes and difficulty communicating thoughts Psych: Reports: sleeping less, memory loss and difficulty concentrating Physical Exam Const: COMMON NORMALS: no acute distress and average body habitus EXAM LIMITATIONS: altered mental status GENERAL APPEARANCE: cooperative, comfortable, well kempt and well hydrated; not in distress, not anxious, not disheveled, not lethargic, not ill appearing, not frail appearing, not diaphoretic and no odor of alcohol detected ORIENTATION/CONSCIOUSNESS: Yes awake, Yes oriented to person and Yes confused; not oriented to place, not oriented to time and not lethargic HENMT: COMMON NORMALS: normocephalic and atraumatic HEAD & SCALP: normal to inspection, normocephalic and atraumatic FACE & SINUS: normal facial exam and face symmetric Eye: COMMON NORMALS: Equal, round and reactive pupils present, EOMs intact bilaterally, conjunctivae normal and no scleral icterus GENERAL EYE: appearance normal, both eyes and all related structures CONJUNCTIVA: Yes conjunctivae normal PUPIL: Yes Equal, round and reactive pupils present Neck/C-Spine: COMMON NORMALS: full ROM and no lymphadenopathy CERVICAL SPINE: Yes cervical ROM normal Chest: COMMONS NORMALS: normal inspection of the chest Resp: COMMON NORMALS: normal respiratory effort and clear to auscultation bilaterally; negative for No use of accessory muscles EFFORT & INSPECTION: Yes able to speak in complete sentences, No tachypneic and No respiratory distress AUSCULTATION: clear to auscultation bilaterally Cardio: COMMON NORMALS: regular rate, regular rhythm, S1 normal heart sound present and S2 normal heart sound present RATE: regular rate RHYTHM: regular rhythm HEART SOUNDS: S1 normal heart sound present and S2 normal heart sound present GI: COMMON NORMALS: Normal to inspection, nondistended, normoactive bowel sounds present, Soft to palpation, non-tender and No hepatosplenomegaly present PALPATION: Yes Soft to palpation and Yes No hepatosplenomegaly present Extremity: COMMON NORMALS: normal to inspection, full ROM, capillary refill normal, no joint enlargement and no pedal edema Neuro: COMMON NORMALS: moves all extremities and no focal motor deficits SENSORIUM/ORIENTATION: Yes oriented to person, No oriented to place, No oriented to time and No lethargic Psych: COMMON NORMALS: speech normal APPEARANCE: Yes well kempt ACTIVITY/MOTOR BEHAVIOR: Yes appropriate eye contact, No psychomotor agitation, No fidgeting, No restless and No Avoids eye contact (attititude/behavior) SPEECH: Yes normal speech THOUGHT PROCESS: disorganized, confused and Illogical thought process present THOUGHT CONTENT: No delusions and No Hallucination(s) present MEMORY/COGNITION: Yes memory grossly impaired and Yes cognition grossly impaired INSIGHT: Poor insight present (Psych) JUDGEMENT: Poor judgement present (Psych) Course Vital Signs: Vital signs: Vital Signs Temperature 97.7 F 06/04/20 06:39 Pulse Rate 96 06/04/20 06:39 Respiratory Rate 20 H 06/04/20 06:39 Blood Pressure 196/69 06/04/20 06:39 Pulse Oximetry 98 06/04/20 06:39 MDM - Altered Mental Status MDM Narrative: Medical decision making narrative: 80-year-old female with Alzheimer's dementia brought in by EMS after she was found wandering outside of her home near a busy street in [place]. On exam she is well-appearing, in no acute distress. She is disoriented and confused, unable to recall why she left her house or where she was planning to go. She is cared for at home by her who I spoke with at length. He knows that most likely she will require [facility] placement in the near [facility], but would like to delay it as long as possible. He is going to discuss with his daughters who live nearby about arranging more supervision overnight, in addition he did try to have some deadbolt locks installed on the interior doors. Based on our conversation, I do think he is trying his best to take care of his and really would like to delay having to place her in a m[facility]p during the pandemic, which is understandable. He seems to be very insightful and aware of the seriousness of the situation. I think with the help of additional family members and some additional security measures at home, it is safe to send her back home with the understanding that the family start looking at long-term options in the meantime. Medically, she is stable. Her blood pressure is elevated, but as the stated, she refuses to take any medication. CBC and chemistry within normal limits, urinalysis is borderline-she does have 1+ bacteria and 1+ LE, although there is only 0-4 WBCs. Will err on the side of caution and give her an IV dose of Rocephin in case she does have an early UTI, as it could have been a contributing factor to her behavioral changes in the last 24 hours. We will also give her fluid bolus as her labs suggest mild dehydration. Differential Diagnosis: Differential diagnosis altered mental status: Likely altered mental status, delirium, dementia, hypoglycemia and sepsis Medical Records: Attestation: I reviewed the patient's medical records. Lab Data: Attestation: I reviewed the patient's lab results. Labs: Lab Results 06/04/20 06/04/20 06/04/20 Range/Units 06:53 07:00 07:00 WBC 5.7 (4.0-10.0) 10^3/ uL RBC 4.23 (4.1-5.3) 10^6/u L Hgb 13.1 (11.5-15.3) g/dL Hct 40.9 (37.0-47.0) % MCV 96.7 (81-99) fL MCH 31.0 (28.0-34.0) pg MCHC 32.0 (30.0-36.0) g/dL RDW 12.9 (12.1-15.1) % Plt Count 164 (130-400) 10^3/c mm MPV 11.5 H (7.4-10.4) fL Neut % (Auto) 68.5 % Lymph % (Auto) 19.0 % Esmeralda % (Auto) 9.3 % Eos % (Auto) 2.3 % Baso % (Auto) 0.7 % Neut # (Auto) 3.90 (1.8-7.7) 10^3/u L Lymph # (Auto) 1.1 (0.8-4.8) 10^3/u L Esmeralda # (Auto) 0.5 (0.2-0.9) 10^3/u L Eos # (Auto) 0.1 (0.0-0.8) 10^3/u L Baso # (Auto) 0.0 (0.0-0.1) 10^3/u L Nucleated RBC % (a uto) 0 % Nucleated RBCs # 0.0 /100WBC PT 14.20 (12.1-14.9) SECO NDS INR 1.07 (0.8-1.2) APTT 24.0 (23.9-36.7) SECO NDS Sodium (136-145) mmol/L Potassium (3.5-5.1) mmol/L Chloride (98-107) mmol/L Carbon Dioxide (22-29) mmol/L Anion Gap (5-19) BUN (8-23) mg/dL Creatinine (0.5-0.9) mg/dL GFR Calculation Glucose (65-115) mg/dL POC Glucose 154 H (70-110) mg/dL Calculated Osmolal ity (285-295) mOsm/k g Calcium (8.5-10.5) mg/dL Total Bilirubin (0.15-1.2) mg/dL AST (0-32) U/L ALT (0-33) U/L Alkaline Phosphata se (35-105) IU/L Total Protein (6.6-8.7) g/dL Albumin (3.5-5.2) g/dL Globulin (1.3-4.6) g/dL Urine Color (Yellow) Urine Appearance (CLEAR) Urine pH (5-7) Ur Specific Gravit y (1.005-1.030) Urine Protein (Negative) Urine Glucose (UA) (Normal) Urine Ketones (Negative) Urine Blood (Negative) Urine Nitrate (Negative) Urine Bilirubin (Negative) Urine Urobilinogen (Negative) mg/dL Ur Leukocyte Ember ase (Negative) Urine RBC (0-2) /hpf Urine WBC (0-5) /hpf Ur Squamous Epith Cells (0-5) /hpf Amorphous Sediment Urine Bacteria (NONE) /hpf Hyaline Casts /lpf Urine Mucus /hpf 06/04/20 06/04/20 Range/Units 07:00 07:12 WBC (4.0-10.0) 10^3/ uL RBC (4.1-5.3) 10^6/u L Hgb (11.5-15.3) g/dL Hct (37.0-47.0) % MCV (81-99) fL MCH (28.0-34.0) pg MCHC (30.0-36.0) g/dL RDW (12.1-15.1) % Plt Count (130-400) 10^3/c mm MPV (7.4-10.4) fL Neut % (Auto) % Lymph % (Auto) % Esmeralda % (Auto) % Eos % (Auto) % Baso % (Auto) % Neut # (Auto) (1.8-7.7) 10^3/u L Lymph # (Auto) (0.8-4.8) 10^3/u L Esmeralda # (Auto) (0.2-0.9) 10^3/u L Eos # (Auto) (0.0-0.8) 10^3/u L Baso # (Auto) (0.0-0.1) 10^3/u L Nucleated RBC % (a uto) % Nucleated RBCs # /100WBC PT (12.1-14.9) SECO NDS INR (0.8-1.2) APTT (23.9-36.7) SECO NDS Sodium 139 (136-145) mmol/L Potassium 3.7 (3.5-5.1) mmol/L Chloride 104 (98-107) mmol/L Carbon Dioxide 22 (22-29) mmol/L Anion Gap 16.7 (5-19) BUN 23 (8-23) mg/dL Creatinine 0.7 (0.5-0.9) mg/dL GFR Calculation Not Reportable Glucose 166 H (65-115) mg/dL POC Glucose (70-110) mg/dL Calculated Osmolal ity 295 (285-295) mOsm/k g Calcium 9.4 (8.5-10.5) mg/dL Total Bilirubin 0.5 (0.15-1.2) mg/dL AST 33 H (0-32) U/L ALT 31 (0-33) U/L Alkaline Phosphata se 66 (35-105) IU/L Total Protein 7.7 (6.6-8.7) g/dL Albumin 4.4 (3.5-5.2) g/dL Globulin 3.3 (1.3-4.6) g/dL Urine Color Dark yellow (Yellow) Urine Appearance Clear (CLEAR) Urine pH 5 (5-7) Ur Specific Gravit y 1.030 (1.005-1.030) Urine Protein Trace (Negative) Urine Glucose (UA) Norm (Normal) Urine Ketones 1+ H (Negative) Urine Blood 2+ H (Negative) Urine Nitrate Negative (Negative) Urine Bilirubin Neg (Negative) Urine Urobilinogen 1 H (Negative) mg/dL Ur Leukocyte Ember ase 1+ H (Negative) Urine RBC Rare (0-2) /hpf Urine WBC 0-4 H (0-5) /hpf Ur Squamous Epith Cells 0-4 H (0-5) /hpf Amorphous Sediment Not Reportable Urine Bacteria 1+ H (NONE) /hpf Hyaline Casts 0-4 H /lpf Urine Mucus Trace /hpf EKG Data^: EKG 1: Attestation: I personally reviewed and interpreted this EKG as follows: EKG interpretation date: 06/04/20 EKG interpretation time: 07:10 Prior EKG tracings: available for review Interpretation: Normal sinus rhythm at a rate of 81, occasional PVC. [place] 191, QTc 431. Normal axis. No new or acute ST segment changes when compared with previous EKG from 01/30/2020. No abnormal T wave inversions. Discharge Plan Discharge Patient Disposition: Home Clinical Impression: Abnormal finding on urinalysis Alzheimer's dementia with behavioral disturbance Qualifiers: Alzheimer's disease onset: unspecified onset Qualified Code(s): G30.9 - Alzheimer's disease, unspecified Condition: Stable Prescriptions: No Action Unable to Assess RF: 0 Discharge Orders: Discharge ED (Routine); Ordered 06/04/20 Ordered By: Madison Berry Discharge Diet: Usual diet Discharge Activity: Resume usual activity Activity Restrictions/Additional Instructions: See attached handouts on Home safety and Wandering Follow-up with your primary care doctor in the next 3 to 5 days for reexamination. Return immediately to the ER for fever, worsening confusion, vomiting, abdominal pain, difficulty breathing, or any other sudden changes. Coding Level of Care Code ED Business Mail Entry Clerk for 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
[2020-06-04 07:26] LABS: INR 1.07 (0.8-1.2)
[2020-06-04 07:34] LABS: Alanine Aminotransferase 31 U/L (0-33); Albumin Level 4.4 g/dL (3.5-5.2); Alkaline Phosphatase 66 IU/L (35-105); Anion Gap 16.7 (5-19); Aspartate Amino Transferase 33 U/L (0-32); Blood Urea Nitrogen 23 mg/dL (8-23); Calcium 9.4 mg/dL (8.5-10.5); Carbon Dioxide 22 mmol/L (22-29); Chloride 104 mmol/L (98-107); Globulin 3.3 g/dL (1.3-4.6); Glucose 166 mg/dL (65-115); Osmolality Calculated 295 mOsm/kg (285-295); Potassium 3.7 mmol/L (3.5-5.1); Sodium 139 mmol/L (136-145); Total Bilirubin 0.5 mg/dL (0.15-1.2); Total Protein 7.7 g/dL (6.6-8.7)
[2020-06-04 07:58] LABS: Bilirubin Urine Neg (Negative); Blood Urine 2+ (Negative); Glucose Urine UA Norm (Normal); Ketones Urine 1+ (Negative); Nitrate Urine Negative (Negative); Protein Urine Trace (Negative); Urine Appearance Clear (CLEAR); Urine Color Dark Yellow (Yellow); pH Urine 5 (5-7)
[2020-06-04 07:59] LABS: Add Urine Microscopic? YES; Leukocyte Esterase Urine 1+ (Negative); RBC Urine RARE /hpf (0-2); Squamous Epithelial Cell Urine 0-4 /hpf (0-5); Urobilinogen Urine 1 mg/dL (Negative); WBC Urine 0-4 /hpf (0-5)
[2020-06-04 08:01] LABS: Bacteria Urine 1+ /hpf; Hyaline Casts Urine 0-4 /lpf; Mucus Urine TRACE /hpf
[2020-06-04 08:02] LABS: Add Urine Culture? Yes
[2020-06-04 08:30] VITALS: BP 154/74; PULSE 77; O2SAT 98
[2020-06-04] MEDS: cefTRIAXone 1,000 MG in sodium chloride 0.9% (plus) 50 ML 100 MG IV (08:41)
[2020-06-04] MEDS: sodium chloride 0.9% 1,000 ML 999 ML IV (08:41)
[2020-06-04 09:00] VITALS: PULSE 104; O2SAT 99
[2020-06-04 09:41] VITALS: PULSE 95; RESP 18; O2SAT 99
== END 2020-06-04 09:39 | disposition home or self-care (01) ==
PROVIDERS: Emergency Provider Family Medicine
DX: G30.9 Alzheimer's disease, unspecified (principal); R82.90 Unspecified abnormal findings in urine
CPT/HCPCS: 12345; 36416; 80053; 81001; 82962; 85025; 85610; 85730; 87086; 93005; 96365; 99282; 99283; J0696; J7030

== ENCOUNTER 2020-11-26 08:06 | Emergency (ER) | payer MEDICARE, SELFPAY ==
--- NOTE | 2020-11-26 08:17 | ECG_ITS ---
[facility] Test Date: 2020-11-26 Pat Name: Maria Ines Jackson Department: Room: Gender: Female Manager Merchandising: : 1940 Requested By: Jean Zuniga Order Number: [id number] Reading MD: JORGITO GOODWIN Measurements Intervals [place] Rate: 64 P: 66 TN: 203 QRS: 25 QRSD: 95 T: 57 QT: 503 QTc: 523 Interpretive Statements SINUS RHYTHM WITH FREQUENT VENTRICULAR PREMATURE COMPLEXES POSSIBLE LEFT ATRIAL ENLARGEMENT [-0.1mV P WAVE IN V1/V2] SEPTAL MYOCARDIAL INFARCTION [40+ ms Q WAVE IN V1/V2], PROBABLY OLD Compared to ECG 06/04/2020 07:08:37 Myocardial infarct finding now present T-wave abnormality no longer present Electronically Signed On 11-27-2020 18:50:47 CDT by JORGITO GOODWIN [id number]
[2020-11-26 08:20] VITALS: BP 152/74; PULSE 77; RESP 16; TEMP 36.5; O2SAT 95; BMI 26.6
[2020-11-26] MEDS: haloperidol inj 5 mg/mL INJ 1 mL 3 MG IM (08:20)
[2020-11-26] MEDS: LORazepam 2 mg/mL INJ 1 mL 1 MG IM (08:20)
--- NOTE | 2020-11-26 08:20 | W.ED.PSYCH ---
HPI - Psych General: Chief Complaint: Altered Mental Status Stated Complaint: AMS Time Seen by Provider: 11/26/20 08:08 Source: police Mode of arrival: other (police) Limitations: other (Moderate severe dementia) History of Present Illness: HPI Narrative: According to police, patient left her home and was [place] wandering [place] the [place]. was unable to get her back in the home. Patient reportedly with escalation of her dementia and agitation. Patient does not want to be at the hospital. She states she has mild pain in her right arm from being pulled into the hospital. She has normal range of motion of the arm appears uninjured. Patient is confused and does not know where she is. She is oriented to self only. She is disheveled. She has no complaints of pain elsewhere. She denies any chest pain or shortness of breath. She denies any abdominal pain. Denies any fever or cough. MD complaint: other (Increased confusion and agitation) Onset (ago): unknown Duration: constant History of same: Yes (Patient was seen in the emergency room in January 2020 for similar proble) Relieving factors: none Exacerbating factors: none Associated psychiatric symptoms: racing thoughts and delusions Associated symptoms: Reports delusions and racing thoughts; Deny homicidal ideation Treatments prior to arrival: none Review of Systems Const: Denies: fever(s) or chills Eyes: Denies: change in vision ENMT: Denies: throat pain Card: Denies: chest pain or palpitations Resp: Denies: dyspnea or wheezing GI: Denies: abdominal pain, nausea or vomiting : Denies: flank pain Musc: Reports: other (Mild right forearm pain); Denies: neck pain or back pain Skin/Breast: Denies: rash or pruritus Neuro: Denies: headache(s) or numbness in extremities Psych: Reports: anxiety, irritability and difficulty concentrating; Denies: homicidal ideation Mathew/Lymph: Denies: enlarged lymph nodes Physical Exam Const: COMMON NORMALS: alert and well nourished GENERAL APPEARANCE: disheveled ORIENTATION/CONSCIOUSNESS: Yes awake HENMT: COMMON NORMALS: normocephalic and atraumatic HEAD & SCALP: normocephalic and atraumatic Eye: COMMON NORMALS: EOMs intact bilaterally Neck/C-Spine: COMMON NORMALS: full ROM, no lymphadenopathy, supple and no JVD Lymph: LYMPHATIC: no lymphadenopathy noted Chest: COMMONS NORMALS: normal inspection of the chest and normal palpation of entire chest wall Resp: COMMON NORMALS: normal respiratory effort, No retractions, No use of accessory muscles and clear to auscultation bilaterally AUSCULTATION: clear to auscultation bilaterally Cardio: COMMON NORMALS: no JVD, regular rate, regular rhythm and Peripheral pulses 2+ throughout RATE: regular rate RHYTHM: regular rhythm PERIPHERAL PULSES: Peripheral pulses 2+ throughout GI: COMMON NORMALS: Normal to inspection, nondistended, normoactive bowel sounds present, Soft to palpation and non-tender PALPATION: Yes Soft to palpation : COMMON NORMALS: Yes no CVA tenderness BLADDER/KIDNEY EXAM: Yes no CVA tenderness Back/Pelvis: COMMON NORMALS: no CVA tenderness Extremity: COMMON NORMALS: normal to inspection and full ROM Neuro: COMMON NORMALS: CN's II-XII intact bilaterally, moves all extremities, no focal motor deficits and no sensory deficits noted SENSORIUM/ORIENTATION: Yes alert Psych: COMMON NORMALS: speech normal APPEARANCE: Yes disheveled ATTITUDE: Yes paranoid, Yes uncooperative and Yes agitated ACTIVITY/MOTOR BEHAVIOR: Yes appropriate eye contact SPEECH: Yes normal speech MOOD & AFFECT: Yes anxious THOUGHT PROCESS: disorganized and confused THOUGHT CONTENT: Yes delusions INSIGHT: Poor insight present (Psych) JUDGEMENT: Poor judgement present (Psych) Skin: COMMON NORMALS: no rashes or lesions noted GENERAL SKIN EXAM: no rashes or lesions noted Course Vital Signs: Vital signs: Vital Signs Temperature 97.8 F 11/26/20 13:11 Pulse Rate 62 11/26/20 13:11 Respiratory Rate 16 11/26/20 13:11 Blood Pressure 152/74 11/26/20 08:20 Pulse Oximetry 95 11/26/20 13:11 MDM - Psych MDM Narrative: Medical decision making narrative: Patient with acute agitation and presents with walking in the highway this morning. Patient with moderate to severe dementia. She is unable to care for self. She is at risk for harming herself unintentionally. Her is unable to care for her also. She will require 72-hour involuntary hold for placement at a geriatric psychiatric unit. She likely will need placement in a snf. 1117: Patient is medically cleared to be transferred to the geriatric psychiatric unit. 1435: Discussed case with physician at [facility] in [facility]. Dr. Snyder will be the accepting physician. Lab Data: Attestation: I reviewed the patient's lab results. Labs: Lab Results 11/26/20 11/26/20 11/26/20 Range/Units 08:53 08:53 08:53 WBC 3.6 L (4.0-10.0) 10^3/ uL RBC 4.33 (4.1-5.3) 10^6/u L Hgb 13.5 (11.5-15.3) g/dL Hct 40.5 (37.0-47.0) % MCV 93.5 (81-99) fL MCH 31.2 (28.0-34.0) pg MCHC 33.3 (30.0-36.0) g/dL RDW 12.7 (12.1-15.1) % Plt Count 158 (130-400) 10^3/c mm MPV 12.2 H (7.4-10.4) fL Neut % (Auto) 60.4 % Lymph % (Auto) 25.7 % [place] % (Auto) 10.3 % Eos % (Auto) 2.2 % Baso % (Auto) 1.1 % Neut # (Auto) 2.16 (1.8-7.7) 10^3/u L Lymph # (Auto) 0.9 (0.8-4.8) 10^3/u L [place] # (Auto) 0.4 (0.2-0.9) 10^3/u L Eos # (Auto) 0.1 (0.0-0.8) 10^3/u L Baso # (Auto) 0.0 (0.0-0.1) 10^3/u L Nucleated RBC % (a uto) 0 % Nucleated RBCs # 0.0 /100WBC Sodium 142 (136-145) mmol/L Potassium 3.5 (3.5-5.1) mmol/L Chloride 109 H (98-107) mmol/L Carbon Dioxide 18 L (22-29) mmol/L Anion Gap 18.5 (5-19) BUN 10 (8-23) mg/dL Creatinine 0.7 Cancelled (0.5-0.9) mg/dL GFR Calculation Not Reportable Glucose 179 H (65-115) mg/dL Specific [place] Cancelled Calculated Osmolal ity 298 H (285-295) mOsm/k g Calcium 9.2 (8.5-10.5) mg/dL Total Bilirubin 0.7 (0.15-1.2) mg/dL AST 31 (0-32) U/L ALT 32 (0-33) U/L Alkaline Phosphata se 57 (35-105) IU/L Total Protein 6.3 L (6.6-8.7) g/dL Albumin 3.7 (3.5-5.2) g/dL Globulin 2.6 (1.3-4.6) g/dL TSH 2.73 (0.27-4.20) uIU/ mL Urine Color (Yellow) Urine Appearance (CLEAR) Urine pH Cancelled Ur Specific Gravit y (1.005-1.030) Urine Protein (Negative) Urine Glucose (UA) (Normal) Urine Ketones (Negative) Urine Blood (Negative) Urine Nitrate (Negative) Urine Bilirubin (Negative) Urine Urobilinogen (Negative) mg/dL Ur Leukocyte Ember ase (Negative) Urine RBC (0-2) /hpf Urine WBC (0-5) /hpf Ur Squamous Epith Cells (0-5) /hpf Amorphous Sediment Urine Bacteria (NONE) /hpf Urine Mucus /hpf Urine Oxidant Cancelled Salicylates < 0.3 L (3-10) mg/dL Urine Opiates Scre en (Negative) ng/mL Urine Opiates Leve l Cancelled Urine Oxycodone Cancelled U Methadone Metabo lites Cancelled Acetaminophen < 5.0 L (10-30) ug/mL Barbiturates Cancelled Ur Barbiturates Sc reen (Negative) ng/mL Phencyclidine (PCP ) Cancelled Ur Phencyclidine S crn (Negative) ng/mL Amphetamines Cancelled Ur Amphetamines Sc reen (Negative) ng/mL Benzodiazepines Cancelled U Benzodiazepines Scrn (Negative) ng/mL Cocaine Metabolite Cancelled Urine Cocaine Scre en (Negative) ng/mL U Marijuana (THC) Screen (Negative) ng/mL U Marijuana Metabo lites Cancelled Abn Spec Valid Sunny g Scn Cancelled Urine Drug Screen Note Cancelled Ur Drug Screen Com ment Cancelled Ethyl Alcohol < 10 (0-10) mg/dL SARS-CoV-2 Ag (Rap id) (Negative) 11/26/20 11/26/20 11/26/20 Range/Units 09:00 09:00 09:00 WBC (4.0-10.0) 10^3/ uL RBC (4.1-5.3) 10^6/u L Hgb (11.5-15.3) g/dL Hct (37.0-47.0) % MCV (81-99) fL MCH (28.0-34.0) pg MCHC (30.0-36.0) g/dL RDW (12.1-15.1) % Plt Count (130-400) 10^3/c mm MPV (7.4-10.4) fL Neut % (Auto) % Lymph % (Auto) % [place] % (Auto) % Eos % (Auto) % Baso % (Auto) % Neut # (Auto) (1.8-7.7) 10^3/u L Lymph # (Auto) (0.8-4.8) 10^3/u L [place] # (Auto) (0.2-0.9) 10^3/u L Eos # (Auto) (0.0-0.8) 10^3/u L Baso # (Auto) (0.0-0.1) 10^3/u L Nucleated RBC % (a uto) % Nucleated RBCs # /100WBC Sodium (136-145) mmol/L Potassium (3.5-5.1) mmol/L Chloride (98-107) mmol/L Carbon Dioxide (22-29) mmol/L Anion Gap (5-19) BUN (8-23) mg/dL Creatinine (0.5-0.9) mg/dL GFR Calculation Glucose (65-115) mg/dL Specific [place] Calculated Osmolal ity (285-295) mOsm/k g Calcium (8.5-10.5) mg/dL Total Bilirubin (0.15-1.2) mg/dL AST (0-32) U/L ALT (0-33) U/L Alkaline Phosphata se (35-105) IU/L Total Protein (6.6-8.7) g/dL Albumin (3.5-5.2) g/dL Globulin (1.3-4.6) g/dL TSH (0.27-4.20) uIU/ mL Urine Color Yellow (Yellow) Urine Appearance Sl hazy (CLEAR) Urine pH 5 Ur Specific Gravit y 1.015 (1.005-1.030) Urine Protein Neg (Negative) Urine Glucose (UA) Norm (Normal) Urine Ketones Negative (Negative) Urine Blood Neg (Negative) Urine Nitrate Negative (Negative) Urine Bilirubin Neg (Negative) Urine Urobilinogen 1 H (Negative) mg/dL Ur Leukocyte Ember ase Negative (Negative) Urine RBC None (0-2) /hpf Urine WBC 0-4 H (0-5) /hpf Ur Squamous Epith Cells 0-4 H (0-5) /hpf Amorphous Sediment Not Reportable Urine Bacteria 1+ H (NONE) /hpf Urine Mucus Trace /hpf Urine Oxidant Salicylates (3-10) mg/dL Urine Opiates Scre en Negative (Negative) ng/mL Urine Opiates Leve l Urine Oxycodone U Methadone Metabo lites Acetaminophen (10-30) ug/mL Barbiturates Ur Barbiturates Sc reen Negative (Negative) ng/mL Phencyclidine (PCP ) Ur Phencyclidine S crn Negative (Negative) ng/mL Amphetamines Ur Amphetamines Sc reen Negative (Negative) ng/mL Benzodiazepines U Benzodiazepines Scrn Negative (Negative) ng/mL Cocaine Metabolite Urine Cocaine Scre en Negative (Negative) ng/mL U Marijuana (THC) Screen Negative (Negative) ng/mL U Marijuana Met[place] lites Abn Spec Valid Sunny g Scn Urine Drug Screen Note Ur Drug Screen Com ment Ethyl Alcohol (0-10) mg/dL SARS-CoV-2 Ag (Rap id) Negative (Negative) EKG Data^: EKG 1: Attestation: I personally reviewed and interpreted this EKG as follows: EKG interpretation date: 11/26/20 EKG interpretation time: 09:17 Prior EKG tracings: not available for review Interpretation: Normal sinus rhythm with occasional PVCs. Heart rate 64, normal OK interval, normal P wave, normal T wave, normal ST segment. Normal axis Normal QRS impression normal sinus rhythm with occasional PVCs. 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
--- NOTE | 2020-11-26 09:00 | PC.NURSE ---
patient is calm, cooperative at this time. no acute distress noted.
[2020-11-26 09:08] LABS: Basophils % 1.1 %; Eosinophils # 0.1 10^3/uL (0.0-0.8); Eosinophils % 2.2 %; Hematocrit 40.5 % (37.0-47.0); Hemoglobin 13.5 g/dL (11.5-15.3); Lymphocytes # 0.9 10^3/uL (0.8-4.8); Lymphocytes % 25.7 %; Mean Corpuscular HGB Conc 33.3 g/dL (30.0-36.0); Mean Corpuscular Hemoglobin 31.2 pg (28.0-34.0); Mean Corpuscular Volume 93.5 fL (81-99); Mean Platelet Volume 12.2 fL (7.4-10.4); Monocytes # 0.4 10^3/uL (0.2-0.9); Monocytes % 10.3 %; Neutrophils # 2.16 10^3/uL (1.8-7.7); Neutrophils % 60.4 %; Nucleated Red Blood Cells % 0 %; Platelet Count 158 10^3/cmm (130-400); Red Blood Count 4.33 10^6/uL (4.1-5.3); Red Cell Distribution Width 12.7 % (12.1-15.1); White Blood Count 3.6 10^3/uL (4.0-10.0)
[2020-11-26 09:19] LABS: Add Urine Culture? No; Bacteria Urine 1+ /hpf; Bilirubin Urine Neg (Negative); Blood Urine Neg (Negative); Glucose Urine UA Norm (Normal); Ketones Urine Negative (Negative); Leukocyte Esterase Urine Negative (Negative); Mucus Urine TRACE /hpf; Nitrate Urine Negative (Negative); Protein Urine Neg (Negative); Specific Gravity, Urine 1.015 (1.005-1.030); Squamous Epithelial Cell Urine 0-4 /hpf (0-5); Urine Appearance SL Hazy (CLEAR); Urine Color Yellow (Yellow); Urobilinogen Urine 1 mg/dL (Negative); WBC Urine 0-4 /hpf (0-5); pH Urine 5 (5-7)
[2020-11-26 09:33] LABS: SARS Covid-2 Antigen Negative (Negative)
[2020-11-26 09:45] LABS: Amphetamines Screen Urine Negative (Negative); Barbiturates Screen Urine Negative (Negative); Benzodiazepines Screen Urine Negative (Negative); Cocaine Screen Urine Negative (Negative); Opiate Screen Urine Negative (Negative); PCP Screen Urine Negative (Negative); THC Screen Urine Negative (Negative)
[2020-11-26 09:54] LABS: Alanine Aminotransferase 32 U/L (0-33); Albumin Level 3.7 g/dL (3.5-5.2); Alkaline Phosphatase 57 IU/L (35-105); Anion Gap 18.5 (5-19); Aspartate Amino Transferase 31 U/L (0-32); Blood Urea Nitrogen 10 mg/dL (8-23); Calcium 9.2 mg/dL (8.5-10.5); Carbon Dioxide 18 mmol/L (22-29); Chloride 109 mmol/L (98-107); Globulin 2.6 g/dL (1.3-4.6); Glucose 179 mg/dL (65-115); Osmolality Calculated 298 mOsm/kg (285-295); Potassium 3.5 mmol/L (3.5-5.1); Sodium 142 mmol/L (136-145); Thyroid Stimulating Hormone 2.73 uIU/mL (0.27-4.20); Total Bilirubin 0.7 mg/dL (0.15-1.2); Total Protein 6.3 g/dL (6.6-8.7)
[2020-11-26 10:13] LABS: Acetaminophen < 5.0 ug/mL (10-30); Alcohol Level < 10 mg/dL (0-10); Salicylate < 0.3 mg/dL (3-10)
--- NOTE | 2020-11-26 10:21 | PC.NURSE ---
patient is sleeping, easily arousable. no acute distress noted.
--- NOTE | 2020-11-26 13:00 | PC.NURSE ---
patient resting comfortably , no acute distress noted at this time
[2020-11-26 13:11] VITALS: PULSE 62; RESP 16; TEMP 36.6; O2SAT 95
[2020-11-26 15:13] VITALS: BP 145/70; PULSE 60; RESP 16; O2SAT 96
== END 2020-11-26 16:04 ==
PROVIDERS: Emergency Provider Family Medicine
DX: F03.91 Unspecified dementia, unspecified severity, with behavioral disturbance (principal); F22 Delusional disorders
CPT/HCPCS: 80053; 80306; 80307; 81001; 84443; 85025; 87086; 87426; 93005; 96372; 99285; J1630; J2060

== ENCOUNTER 2021-01-05 11:01 | Emergency (ER) | payer MEDICARE, SELFPAY ==
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
--- NOTE | 2021-01-05 11:10 | XR_ITS ---
WS: [id number] Portable AP upright chest, 01/05/2021 Clinical Data: tachypnea Comparison: Portable chest, 01/30/2020. Findings: No nodules, masses or effusions are seen. The heart is normal. The pulmonary vascularity is not increased. No pneumonia or pneumothorax is seen. There is a calcified granuloma in the right low er lobe. The aortic arch shows minimal calcification. The patient's clothing obscures minimal detail. XR/XR chest 1V portable [id number] Impression: Atherosclerosis.
[2021-01-05 11:11] VITALS: BP 175/94; PULSE 60; RESP 20; O2SAT 98
--- NOTE | 2021-01-05 11:11 | ECG_ITS ---
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 Measurements Intervals [place] Rate: 60 P: 15 CO: 205 QRS: 3 QRSD: 95 T: 50 QT: 479 QTc: 480 Interpretive Statements SINUS RHYTHM LEFT VENTRICULAR HYPERTROPHY AND ST-T CHANGE [VOLTAGE CRITERIA PLUS ST/T ABNORMALITY] Compared to ECG 11/26/2020 09:15:17 Left ventricular hypertrophy now present ST (T wave) deviation now present Ventricular premature complex(es) no longer present Myocardial infarct finding no longer present Electronically Signed On 01-09-2021 16:43:38 CDT by Candy Meng M.D. [id number]
--- NOTE | 2021-01-05 12:00 | CT_ITS ---
WS: [id number] CT scan of the head, 01/05/2021 Clinical Data: AMS Comparison: CT head, 01/30/2020. DLP: 826.[address] scans at [facility] use at least one of these dose optimization techniques: automat ed exposure control; mA and/or kV adjustment per patient size (includes targeted exams where dose is matched to clinical indication); or iterative reconstruction. Findings: The ventricular system is moderately dilated without shift. No recent infarct or hemorrhage is seen. There are no abnormal intracerebral masses. The cerebellum and brainstem are not remarkable. Bony windows of the skull and skull base show no fractures or erosions. There is a small right forami nal scalp hematoma. The mastoid air cells, internal auditory canals, sella turcica, intraorbital cont ents, and paranasal sinuses are unremarkable. CT/CT head wo con* [id number] Impression: Mild cerebral atrophy.
[2021-01-05 13:41] LABS: Basophils % 0.8 %; Eosinophils # 0.1 10^3/uL (0.0-0.8); Eosinophils % 1.7 %; Hematocrit 38.6 % (37.0-47.0); Hemoglobin 13.1 g/dL (11.5-15.3); Lymphocytes # 1.4 10^3/uL (0.8-4.8); Lymphocytes % 29.9 %; Mean Corpuscular HGB Conc 33.9 g/dL (30.0-36.0); Mean Corpuscular Hemoglobin 31.3 pg (28.0-34.0); Mean Corpuscular Volume 92.3 fl (81-99); Mean Platelet Volume 12.1 fL (7.4-10.4); Monocytes # 0.4 10^3/uL (0.2-0.9); Monocytes % 7.4 %; Neutrophils # 2.85 10^3/uL (1.8-7.7); Nucleated Red Blood Cells % 0 %; Platelet Count 130 10^3/cmm (130-400); Red Blood Count 4.18 10^6/uL (4.1-5.3); Red Cell Distribution Width 12.7 % (12.1-15.1); White Blood Count 4.8 10^3/uL (4.0-10.0)
[2021-01-05 14:18] LABS: Alanine Aminotransferase 19 U/L (0-33); Albumin Level 3.7 g/dL (3.5-5.2); Alkaline Phosphatase 56 IU/L (35-105); Anion Gap 12.7 (5-19); Aspartate Amino Transferase 25 U/L (0-32); Blood Urea Nitrogen 9 mg/dL (8-23); Calcium 8.7 mg/dL (8.5-10.5); Carbon Dioxide 24 mmol/L (22-29); Chloride 106 mmol/L (98-107); Globulin 2.8 g/dL (1.3-4.6); Glucose 103 mg/dL (65-115); Osmolality Calculated 287 mOsm/kg (285-295); Potassium 3.7 mmol/L (3.5-5.1); Sodium 139 mmol/L (136-145); Total Bilirubin 0.6 mg/dL (0.15-1.2); Total Protein 6.5 g/dL (6.6-8.7)
[2021-01-05 14:19] LABS: Acetaminophen < 5.0 ug/mL (10-30); Salicylate < 0.3 mg/dL (3-10)
--- NOTE | 2021-01-05 15:23 | PC.NURSE ---
spoke to [facility] regarding pt's plan of care. pt is accepted at [facility]. Per charge nurse at [facility]-they would like pt to get a psych evaluation. request forwarded to ER physician and psychiatry contacted.
[2021-01-05 17:00] VITALS: BP 174/62; PULSE 70; TEMP 36.6; O2SAT 95
--- NOTE | 2021-01-05 17:27 | PC.NURSE ---
set up discharge ride home/transport with [facility] transport. This ride was approved to be billed to [facility] by VIRGILIO HILARIO
[2021-01-05] MEDS: LORazepam 2 mg/mL INJ 1 mL 1 MG IM (19:40)
[2021-01-05 19:45] VITALS: BP 135/57; PULSE 58; RESP 18; O2SAT 96
== END 2021-01-05 19:45 ==
PROVIDERS: Emergency Provider Emergency Medicine; PCP Family Medicine
DX: F03.90 Unspecified dementia, unspecified severity, without behavioral disturbance, psychotic disturbance, mood disturbance, and anxiety (principal)
CPT/HCPCS: 70450; 71045; 80053; 80307; 84443; 85025; 93005; 96372; 99283; J2060

== ENCOUNTER 2021-01-18 16:26 | Emergency (ER) | payer MEDICARE, SELFPAY ==
--- NOTE | 2021-01-18 16:47 | XRR_ITS ---
PROCEDURE INFORMATION: Exam: XR Chest Exam date and time: 01/18/2021 4:47 PM Age: 80 years old Clinical indication: Shortness of breath; Additional info: AMS TECHNIQUE: Imaging protocol: XR of the chest. Views: 1 view. COMPARISON: CR XR chest 1V portable [id number] 01/05/2021 11:10 AM FINDINGS: Lungs: Calcified granuloma in the right lung base. Mild atelectasis in the lung bases. Possible airspace opacity in the lingula. Pleural spaces: Unremarkable. No pleural effusion. No pneumothorax. Heart/Mediastinum: Unremarkable. No cardiomegaly. Bones/joints: Mild scoliosis. XR/XR chest 1V portable [id number] IMPRESSION: 1. Airspace opacity in the lingula could represent atelectasis or pneumonia.
--- NOTE | 2021-01-18 16:47 | ECG_ITS ---
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: : 1940 Requested By: Paolo Bailon I Order Number: [id number] Reading MD: JORGITO GOODWIN Measurements Intervals [place] Rate: 78 P: 53 AR: 209 QRS: 22 QRSD: 113 T: 66 QT: 431 QTc: 491 Interpretive Statements SINUS RHYTHM WITH FREQUENT VENTRICULAR PREMATURE COMPLEXES MODERATE INTRAVENTRICULAR CONDUCTION DELAY [110+ ms QRS DURATION] ABNORMAL RHYTHM ECG WARNING: DATA QUALITY MAY AFFECT INTERPRETATION Compared to ECG 01/05/2021 12:11:24 Ventricular premature complex(es) now present Intraventricular conduction delay now present Left ventricular hypertrophy no longer present ST (T wave) deviation no longer present Electronically Signed On 01-18-2021 22:17:01 CDT by JORGITO GOODWIN [id number]
[2021-01-18 16:51] VITALS: BP 122/70; PULSE 62; RESP 16; TEMP 36.2; O2SAT 95; BMI 22.1
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
[2021-01-18 17:49] LABS: Eosinophils # 0.1 10^3/uL (0.0-0.8); Eosinophils % 1.2 %; Hemoglobin 13.5 g/dL (11.5-15.3); Lymphocytes # 1.4 10^3/uL (0.8-4.8); Mean Platelet Volume 12.5 fL (7.4-10.4); Nucleated Red Blood Cells % 0 %
[2021-01-18 18:00] LABS: Alanine Aminotransferase 24 U/L (0-33); Albumin Level 3.8 g/dL (3.5-5.2); Alkaline Phosphatase 53 IU/L (35-105); Anion Gap 12.5 (5-19); Aspartate Amino Transferase 24 U/L (0-32); Blood Urea Nitrogen 11 mg/dL (8-23); Carbon Dioxide 25 mmol/L (22-29); Chloride 108 mmol/L (98-107); Globulin 2.8 g/dL (1.3-4.6); Glucose 119 mg/dL (65-115); Osmolality Calculated 295 mOsm/kg (285-295); Potassium 3.5 mmol/L (3.5-5.1); Sodium 142 mmol/L (136-145); Total Bilirubin 0.5 mg/dL (0.15-1.2); Total Protein 6.6 g/dL (6.6-8.7)
[2021-01-18 18:11] LABS: Acetaminophen < 5.0 ug/mL (10-30); Alcohol Level < 10 mg/dL (0-10); Salicylate < 0.3 mg/dL (3-10)
[2021-01-18 18:12] LABS: Hematocrit 40.5 % (37.0-47.0); Lymphocytes % 35.1 %; Mean Corpuscular HGB Conc 33.3 g/dL (30.0-36.0); Mean Corpuscular Hemoglobin 30.9 pg (28.0-34.0); Mean Corpuscular Volume 92.7 fl (81-99); Monocytes # 0.5 10^3/uL (0.2-0.9); Monocytes % 11.4 %; Neutrophils # 2.06 10^3/uL (1.8-7.7); Neutrophils % 51.1 %; Platelet Count 157 10^3/cmm (130-400); Red Blood Count 4.37 10^6/uL (4.1-5.3); Red Cell Distribution Width 12.9 % (12.1-15.1)
--- NOTE | 2021-01-18 18:47 | PC.PHAR ---
PT UNABLE TO CONFIRM MEDICATIONS. NUPUR, FROM [facility], STATES THAT THE PATIENT HAS NOT BEEN TAKING HER SCHEDULED MEDICATIONS REGULARLY FOR THE LAST FEW DAYS AT LEAST. THE ONLY THINGS SHE HAS HAD IN THE LAST 24 HOURS WERE A HALDOL SHOT, 5MG/ML, AND AN ATIVAN SHOT 2MG/ML TODAY AND ATIVAN 0.5 MG TABLET YESTERDAY AT 1400.
--- NOTE | 2021-01-18 19:58 | PC.NURSE ---
patient resting on bed, no distress, sitter at bedside
[2021-01-18 19:59] LABS: SARS Covid-2 Antigen Negative (Negative)
[2021-01-18 20:30] LABS: Add Urine Microscopic? NO; Charge for UA Resulting for Rev
[2021-01-18 20:34] LABS: Bilirubin Urine Neg (Negative); Blood Urine Neg (Negative); Glucose Urine UA Norm (Normal); Ketones Urine Negative (Negative); Leukocyte Esterase Urine Negative (Negative); Nitrate Urine Negative (Negative); Protein Urine Neg (Negative); Urine Appearance Clear (CLEAR); Urine Color Yellow (Yellow); Urobilinogen Urine 1 mg/dL (Negative); pH Urine 5 (5-7)
[2021-01-18 20:43] LABS: Amphetamines Screen Urine Negative (Negative); Barbiturates Screen Urine Negative (Negative); Benzodiazepines Screen Urine Positive (Negative); Cocaine Screen Urine Negative (Negative); Opiate Screen Urine Negative (Negative); PCP Screen Urine Negative (Negative); THC Screen Urine Negative (Negative)
--- NOTE | 2021-01-18 21:01 | PC.NURSE ---
patient asleep. no distress noted. sitter at bedside
--- NOTE | 2021-01-18 22:04 | PC.NURSE ---
no distress noted, sitter at beside
--- NOTE | 2021-01-18 22:35 | PC.NURSE ---
Lucy updated on patient status. may require a 96 because patient is own guardian, will call back.
--- NOTE | 2021-01-18 23:00 | PC.NURSE ---
patient asleep, no distress noted sitter at bedside
--- NOTE | 2021-01-19 00:05 | PC.NURSE ---
patient asleep, respirations even and unlabored. sitter at bedside
--- NOTE | 2021-01-19 00:37 | PC.NURSE ---
labs being reviewed for admission to [facility]
[2021-01-19 01:44] LABS: Thyroid Stimulating Hormone 2.12 uIU/mL (0.27-4.20)
--- NOTE | 2021-01-19 01:59 | PC.NURSE ---
patient alsleep, no distress noted, sitter at bedside
--- NOTE | 2021-01-19 03:26 | PC.NURSE ---
called Lucy, still reviewing chart, will call back, patient asleep, no distress, sitter at bedside
--- NOTE | 2021-01-19 05:15 | PC.NURSE ---
[facility] called for placement,wants cahrt faxed, unit sec to fax chart.
[2021-01-19 06:12] VITALS: BP 104/56; PULSE 71; RESP 16; TEMP 36.3; O2SAT 96
--- NOTE | 2021-01-19 06:13 | PC.NURSE ---
patient wakes for vs, denies needs at this time, no distress noted, sitter at bedside.
--- NOTE | 2021-01-19 07:02 | PC.NURSE ---
report to [facility]
--- NOTE | 2021-01-19 07:31 | PC.NURSE ---
called [facility] for status update, RN states they have not reviewed chart as of this time.
== END 2021-01-19 14:36 ==
PROVIDERS: Emergency Provider Family Medicine; PCP Family Medicine
DX: Z00.8 Encounter for other general examination (principal); F03.91 Unspecified dementia, unspecified severity, with behavioral disturbance
CPT/HCPCS: 71045; 80053; 80306; 80307; 81003; 84443; 85025; 87426; 93005; 99285

== ENCOUNTER 2021-02-26 19:35 | Inpatient (IN) | payer MEDICARE, SELFPAY ==
[2021-02-26 19:40] VITALS: BP 187/83; PULSE 82; RESP 18; TEMP 37.2; O2SAT 98; BMI 25.8
--- NOTE | 2021-02-26 19:45 | CTR_ITS ---
PROCEDURE INFORMATION: Exam: CT Abdomen And Pelvis With Contrast Exam date and time: 02/26/2021 7:45 PM Age: 80 years old Clinical indication: Injury or trauma; Fall; Blunt; Generalized; Prior surgery; Additional info: Abd pain TECHNIQUE: Imaging protocol: Computed tomography of the abdomen and pelvis with contrast. Radiation optimization: All CT scans at this facility use at least one of these dose optimization techniques: automated exposure control; mA and/or kV adjustment per patient size (includes targeted exams where dose is matched to clinical indication); or iterative reconstruction. Contrast material: OMNI 300; Contrast volume: 95 ml; Contrast route: INTRAVENOUS (IV); COMPARISON: CR XR chest 1V portable [id number] 02/26/2021 8:10 PM RADIATION DOSE METRICS: Total DLP (mGy-cm): 1786.72 FINDINGS: Lungs: There is a calcified granuloma in the right lower lobe. There is subsegmental atelectasis in the lung bases. Mediastinal space: There is a small sliding-type hiatal hernia. Liver: The liver is normal. Gallbladder and bile ducts: The gallbladder is absent. There is ectasia of the common bile duct and central intrahepatic ducts. Pancreas: The pancreas is unremarkable. Spleen: The spleen is unremarkable. Adrenal glands: The adrenal glands are unremarkable. Kidneys and ureters: The kidneys are unremarkable. No hydronephrosis or stones. No ureteral dilation. Stomach and bowel: The stomach is decompressed, preventing meaningful evaluation of wall thickness. The small bowel is nondilated. There is moderate sigmoid colonic diverticulosis. There is focal colonic wall thickening and pericolonic edema associated with diverticula in the distal sigmoid visible on axial series 2, image 69. Appendix: The appendix is not visible. Intraperitoneal space: There is no free air or significant intraperitoneal free fluid. Vasculature: There is moderate aortic atherosclerotic disease. The portal, splenic and superior mesenteric veins are patent. Lymph nodes: There is no lymphadenopathy in the retroperitoneum, mesentery, pelvis or inguinal regions. Urinary bladder: The urinary bladder is unremarkable. Reproductive: The uterus is absent. There is no adnexal mass or large cyst. Bones/joints: There is mild degenerative disease in the lumbar spine. The pelvis and proximal femora are intact. No acute fracture. Soft tissues: The abdominal wall is intact. CT/CT abdomen pelvis w con* [id number] IMPRESSION: 1. No sign of significant traumatic injury in the abdomen or pelvis. 2. Acute uncomplicated distal sigmoid diverticulitis. 3. Incidental findings above. Radiation Dose CTDIVOL = (mGy): DLP = 1786.72 (mGy-cm)
--- NOTE | 2021-02-26 19:45 | CTR_ITS ---
PROCEDURE INFORMATION: Exam: CT Head Without Contrast Exam date and time: 02/26/2021 7:45 PM Age: 80 years old Clinical indication: Injury or trauma; Fall; Blunt trauma (contusions or hematomas) TECHNIQUE: Imaging protocol: Computed tomography of the head without contrast. Radiation optimization: All CT scans at this facility use at least one of these dose optimization techniques: automated exposure control; mA and/or kV adjustment per patient size (includes targeted exams where dose is matched to clinical indication); or iterative reconstruction. COMPARISON: CT head wo con* [id number] 01/05/2021 12:44 PM RADIATION DOSE METRICS: Total DLP (mGy-cm): 762.1 FINDINGS: Brain: Age related parenchymal volume loss noted. There is decreased attenuation of the periventricular white matter, consistent with chronic microangiopathic white matter disease. No parenchymal edema identified. No intracranial hemorrhage noted. Cerebral ventricles: No ventriculomegaly. Paranasal sinuses: Visualized sinuses are unremarkable. No fluid levels. Mastoid air cells: Unremarkable as visualized. No mastoid effusion. Bones/joints: Unremarkable. No acute fracture. Soft tissues: 8 mm right frontal subcutaneous cyst or nodule. No scalp hematoma. CT/CT head wo con* [id number] IMPRESSION: 1. No acute intracranial abnormality demonstrated. 2. There is no interval change from the prior examination. Radiation Dose CTDIVOL = (mGy): DLP = 762.1 (mGy-cm)
--- NOTE | 2021-02-26 19:45 | ECG_ITS ---
[facility] Test Date: 2021-02-26 Pat Name: Maria Ines Jackson Department: Room: Gender: Female Certifier: : 1940 Requested By: Kenton Miles Order Number: [id number] Reading MD: Demetri Castillo M.D. Measurements Intervals Lamar Rate: 88 P: 69 HI: 191 QRS: 34 QRSD: 109 T: 78 QT: 378 QTc: 458 Interpretive Statements SINUS RHYTHM WITH OCCASIONAL VENTRICULAR PREMATURE COMPLEXES NONSPECIFIC ST & T-WAVE ABNORMALITY Compared to ECG 01/18/2021 17:33:38 T-wave abnormality now present Intraventricular conduction delay no longer present Electronically Signed On 02-27-2021 17:28:14 CDT by Demetri Castillo M.D. [email or web address]
--- NOTE | 2021-02-26 19:49 | W.ED.GENADLT ---
HPI - General Adult General: Chief complaint: Altered Mental Status Stated complaint: AMS/POST FALL Time Seen by Provider: 02/26/21 19:44 History of Present Illness: HPI narrative: CC: AMS HPI: [80]yo patient w/ dementia (baseline conversant) BIBA for altered mental status today and fall x 2. Per residential, patient was more confused today and only grunting. Patient was found down on the ground twice today. Onset: Unknown Duration: ongoing, unclear duration Location: today Severity: severe Review of Systems Narrative: REVIEW OF SYSTEMS unable to obtain due to current cognitive status PFSH ED PFSH: Medical History Dementia Physical Exam Narrative: EXAM NARRATIVE: Head: Atraumatic Eyes: PERRL, conjunctiva without injection ENT: Mucous membrane moist NECK: Supple without lymphadenopathy LUNGS: LCTAB CV: RRR ABDOMEN: Soft, +mild L sided TTP. NO guarding rebound, guarding, rigidity. No CVA tenderness to percussion. Neg Ramos/Neg McBurney's point tenderness, no suprabupic tenderness to palpation. EXTREMITY: Normal ROM SKIN: No rash or erythema, no signs of track kiser, no visible patches, no noticeable cellulitis NEURO: Somnolent but arousable, moving all extremities, GCS of 14 PSYCH: Somnolent unable to fully assess at this time Procedures Lumbar Puncture Time Out Performed: Yes Patient Position: right lateral decubitus Skin Prep: Povidone-Iodine 1% Local Anesthetic: lidocaine 1% Amount of anesthesia used (mL): 5 Spinal Needle Gauge: 22G Interspace Used: L4-L5 Fluid Initially Obtained: clear Complications: none Course Vital Signs: Vital signs: Vital Signs Temperature 97.9 F 02/27/21 00:00 Pulse Rate 85 02/27/21 00:00 Respiratory Rate 18 02/27/21 00:00 Blood Pressure 186/66 02/27/21 00:00 Pulse Oximetry 95 02/27/21 00:00 MDM - General Adult MDM Narrative: Medical decision making narrative: [80]yo patient w/ hx of dementia BIBA for AMS, unclear last seen normal. Airway maintained. No signs of trauma including bruises, hematoma, lacerations, or basilar skull fracture. NO increased work of breathing or tachypnea on presentation, no suspicion for toxic alcohol vs ASA overdose vs DKA. DDx broad including intracranial injuries, metabolic phenomenon, substance intoxication/withdrawal, and sepsis. Toxidrome Findings: Negative. No rigidity or clonus of LE ankle/knee reflexes, no diaphoresis, pupils mid-ranged equal and reactive to light, no signs of track kiser/body patches, normal bowel sounds, and bladder non-palpable/ non-distended. EKG: EKG: Normal Sinus Rhythm. No overt ischemic findings and no prolongation of QTc or QRS intervals. No signs of hyperkalemia (peaked T waves, QRS widening, and ID prolongation) Workup: CBC, CMP, UA, troponin x 2, ECG, UA/UDS, CT brain, XR Chest Intervention: observation Lab Findings: Within normal limit. Imaging studies: CT brain did not show any signs of acute trauma or injury. [9:24pm] On reassessment, after patient went to CT scan, patient had an episode of witnessed episode of tonic-clonic seizure. Per chart review, patient does not have any history of seizure. 2.5mg of Versed given today. Discussed case Dr. Washington about seizure incident and no prior medication or hx, decision was made for an LP. CT brain do not show any signs of brain bleed. LP performed with results pending. Patient also had mild L sided abdominal pain. CT showed diverticulitis. S/p metronidazole and ceftriaxone in the ED. Disposition: Admission Lab Data: Labs: Lab Results 02/26/21 02/26/21 02/26/21 19:55 19:55 19:55 WBC 6.3 10^3/uL 10^3/ uL (4.0-10.0) RBC 3.84 10^6/uL L 10 ^6/uL (4.1-5.3) Hgb 12.0 g/dL g/dL (11.5-15.3) Hct 36.5 % L % (37.0-47.0) MCV 95.1 fl fl (81-99) MCH 31.3 pg pg (28.0-34.0) MCHC 32.9 g/dL g/dL (30.0-36.0) RDW 13.2 % % (12.1-15.1) Plt Count 202 10^3/cmm 10^3 /cmm (130-400) MPV 11.0 fL H fL (7.4-10.4) Neut % (Auto) 68.2 % % Lymph % (Auto) 18.8 % % [place] % (Auto) 8.5 % % Eos % (Auto) 2.8 % % Baso % (Auto) 0.8 % % Neut # (Auto) 4.30 10^3/uL 10^3 /uL (1.8-7.7) Lymph # (Auto) 1.2 10^3/uL 10^3/ uL (0.8-4.8) [place] # (Auto) 0.5 10^3/uL 10^3/ uL (0.2-0.9) Eos # (Auto) 0.2 10^3/uL 10^3/ uL (0.0-0.8) Baso # (Auto) 0.1 10^3/uL 10^3/ uL (0.0-0.1) Nucleated RBC % (a uto) 0 % % Nucleated RBCs # 0.0 /100WBC /100W BC Sodium 142 mmol/L mmol/L (136-145) Potassium 4.3 mmol/L mmol/L (3.5-5.1) Chloride 108 mmol/L H mmol /L (98-107) Carbon Dioxide 24 mmol/L mmol/L (22-29) Anion Gap 14.3 (5-19) BUN 11 mg/dL mg/dL (8-23) Creatinine 0.5 mg/dL mg/dL (0.5-0.9) GFR Calculation Not Reportable Glucose 128 mg/dL H mg/dL (65-115) Calculated Osmolal ity 295 mOsm/kg mOsm/ kg (285-295) Calcium 9.6 mg/dL mg/dL (8.5-10.5) Total Bilirubin 0.4 mg/dL mg/dL (0.15-1.2) AST 20 U/L U/L (0-32) ALT 12 U/L U/L (0-33) Alkaline Phosphata se 61 IU/L IU/L (35-105) Troponin T Baselin e 18 ng/L H ng/L (0-10) Total Protein 7.1 g/dL g/dL (6.6-8.7) Albumin 4.0 g/dL g/dL (3.5-5.2) Globulin 3.1 g/dL g/dL (1.3-4.6) Lipase 29 U/L U/L (13-60) Urine Color Urine Appearance Urine pH Ur Specific Gravit y Urine Protein Urine Glucose (UA) Urine Ketones Urine Blood Urine Nitrate Urine Bilirubin Urine Urobilinogen Ur Leukocyte Ember ase 02/26/21 20:20 WBC RBC Hgb Hct MCV MCH MCHC RDW Plt Count MPV Neut % (Auto) Lymph % (Auto) [place] % (Auto) Eos % (Auto) Baso % (Auto) Neut # (Auto) Lymph # (Auto) [place] # (Auto) Eos # (Auto) Baso # (Auto) Nucleated RBC % (a uto) Nucleated RBCs # Sodium Potassium Chloride Carbon Dioxide Anion Gap BUN Creatinine GFR Calculation Glucose Calculated Osmolal ity Calcium Total Bilirubin AST ALT Alkaline Phosphata se Troponin T Baselin e Total Protein Albumin Globulin Lipase Urine Color Straw (Yellow) Urine Appearance Clear (CLEAR) Urine pH 7 (5-7) Ur Specific Gravit y 1.000 L (1.005-1.030) Urine Protein Neg (Negative) Urine Glucose (UA) Norm (Normal) Urine Ketones Negative (Negative) Urine Blood Neg (Negative) Urine Nitrate Negative (Negative) Urine Bilirubin Neg (Negative) Urine Urobilinogen Norm mg/dL mg/dL (Negative) Ur Leukocyte Ember ase Negative (Negative) Imaging Data^: Other Imaging: Radiologist's impression: [address] [id number] Scan ReportSigned Patient: Maria Ines Jackson #: [id number]: 1940cct#:[id number]/Sex: 80 / FADM Date: 02/26/21Loc: ERRoom/Bed:Attending Dr: Ordering Provider/Ordering MD: Kenton Miles MD Date of Service: 02/26/21 Procedure(s): CT head wo con* [id number] Accession Number(s): [id number] Report Number: [id number] PROCEDURE INFORMATION: Exam: CT Head Without Contrast Exam date and time: 02/26/2021 7:45 PM Age: 80 years old Clinical indication: Injury or trauma; Fall; Blunt trauma (contusions or hematomas) TECHNIQUE: Imaging protocol: Computed tomography of the head without contrast. Radiation optimization: All CT scans at this facility use at least one of these dose optimization techniques: automated exposure control; mA and/or kV adjustment per patient size (includes targeted exams where dose is matched to clinical indication); or iterative reconstruction. COMPARISON: CT head wo con* [id number] 01/05/2021 12:44 PM RADIATION DOSE METRICS: Total DLP (mGy-cm): 762.1 FINDINGS: Brain: Age related parenchymal volume loss noted. There is decreased attenuation of the periventricular white matter, consistent with chronic microangiopathic white matter disease. No parenchymal edema identified. No intracranial hemorrhage noted. Cerebral ventricles: No ventriculomegaly. Paranasal sinuses: Visualized sinuses are unremarkable. No fluid levels. Mastoid air cells: Unremarkable as visualized. No mastoid effusion. Bones/joints: Unremarkable. No acute fracture. Soft tissues: 8 mm right frontal subcutaneous cyst or nodule. No scalp hematoma. CT/CT head wo con* [id number] IMPRESSION: 1. No acute intracranial abnormality demonstrated. 2. There is no interval change from the prior examination. Radiation Dose CTDIVOL = (mGy): DLP = 762.1 (mGy-cm) Dictated By:Lazaro Silva MDSigned By:Lazaro Silva MDSigned Date/Time:02/26/213DD/ [address] [id number] Scan ReportSigned Patient: Maria Ines Jackson #: [id number]: [id number]#:[id number]/Sex: 80 / FADM Date: 02/26/21Loc: ERRoom/Bed:Attending Dr: Ordering Provider/Ordering MD: Kenton Miles MD Date of Service: 02/26/21 Procedure(s): CT abdomen pelvis w con* [id number] Accession Number(s): [id number] Report Number: [id number] PROCEDURE INFORMATION: Exam: CT Abdomen And Pelvis With Contrast Exam date and time: 02/26/2021 7:45 PM Age: 80 years old Clinical indication: Injury or trauma; Fall; Blunt; Generalized; Prior surgery; Additional info: Abd pain TECHNIQUE: Imaging protocol: Computed tomography of the abdomen and pelvis with contrast. Radiation optimization: All CT scans at this facility use at least one of these dose optimization techniques: automated exposure control; mA and/or kV adjustment per patient size (includes targeted exams where dose is matched to clinical indication); or iterative reconstruction. Contrast material: OMNI 300; Contrast volume: 95 ml; Contrast route: INTRAVENOUS (IV); COMPARISON: CR XR chest 1V portable [id number] 02/26/2021 8:10 PM RADIATION DOSE METRICS: Total DLP (mGy-cm): 1786.72 FINDINGS: Lungs: There is a calcified granuloma in the right lower lobe. There is subsegmental atelectasis in the lung bases. Mediastinal space: There is a small sliding-type hiatal hernia. Liver: The liver is normal. Gallbladder and bile ducts: The gallbladder is absent. There is ectasia of the common bile duct and central intrahepatic ducts. Pancreas: The pancreas is unremarkable. Spleen: The spleen is unremarkable. Adrenal glands: The adrenal glands are unremarkable. Kidneys and ureters: The kidneys are unremarkable. No hydronephrosis or stones. No ureteral dilation. Stomach and bowel: The stomach is decompressed, preventing meaningful evaluation of wall thickness. The small bowel is nondilated. There is moderate sigmoid colonic diverticulosis. There is focal colonic wall thickening and pericolonic edema associated with diverticula in the distal sigmoid visible on axial series 2, image 69. Appendix: The appendix is not visible. Intraperitoneal space: There is no free air or significant intraperitoneal free fluid. Vasculature: There is moderate aortic atherosclerotic disease. The portal, splenic and superior mesenteric veins are patent. Lymph nodes: There is no lymphadenopathy in the retroperitoneum, mesentery, pelvis or inguinal regions. Urinary bladder: The urinary bladder is unremarkable. Reproductive: The uterus is absent. There is no adnexal mass or large cyst. Bones/joints: There is mild degenerative disease in the lumbar spine. The pelvis and proximal femora are intact. No acute fracture. Soft tissues: The abdominal wall is intact. CT/CT abdomen pelvis w con* [id number] IMPRESSION: 1. No sign of significant traumatic injury in the abdomen or pelvis. 2. Acute uncomplicated distal sigmoid diverticulitis. 3. Incidental findings above. Radiation Dose CTDIVOL = (mGy): DLP = 1786.72 (mGy-cm) Dictated By:Ahmet Levin MDSigned By:Ahmet Levin Date/Time:02/26/212139DD/ [address] [id number] ReportSigned Patient: Maria Ines Jackson #: [id number]: 1940cct#:[id number]/Sex: 80 / FADM Date: 02/26/21Loc: ERRoom/Bed:Attending Dr: Ordering Provider/Ordering MD: Kenton Miles MD Date of Service: 02/26/21 Procedure(s): XR chest 1V portable [id number] Accession Number(s): [id number] Report Number: [id number] PROCEDURE INFORMATION: Exam: XR Chest Exam date and time: 02/26/2021 8:01 PM Age: 80 years old Clinical indication: Shortness of breath; Additional info: Pna? TECHNIQUE: Imaging protocol: XR of the chest. Views: 1 view. COMPARISON: CR (CHEST, ) 01/18/2021 5:04 PM FINDINGS: Lungs: There is a calcified granuloma in the right lower lobe. There is subsegmental atelectasis in the left lung. Pleural spaces: There is no pleural effusion or pneumothorax. Heart/Mediastinum: Cardiomediastinal contours are unremarkable. Bones/joints: Bones are unremarkable. XR/XR chest 1V portable [id number] IMPRESSION: No acute findings. Radiation Dose CTDIVOL = (mGy): DLP = (mGy-cm) Dictated By:Ahmet Levin MDSigned By:Ahmet Levinigned Date/Time:02/26/21D/ 00 Discharge Plan Discharge Patient Disposition: Admitted As Inpatient Admit Provider: Terra Washington Clinical Impression: Diverticulitis Altered mental status Qualifiers: Altered mental status type: stupor Qualified Code(s): R40.1 - Stupor Condition: Stable Coding Level of Care Code ED Merchandise Manager for [facility]
--- NOTE | 2021-02-26 20:01 | XRR_ITS ---
PROCEDURE INFORMATION: Exam: XR Chest Exam date and time: 02/26/2021 8:01 PM Age: 80 years old Clinical indication: Shortness of breath; Additional info: Pna? TECHNIQUE: Imaging protocol: XR of the chest. Views: 1 view. COMPARISON: CR (CHEST, ) 01/18/2021 5:04 PM FINDINGS: Lungs: There is a calcified granuloma in the right lower lobe. There is subsegmental atelectasis in the left lung. Pleural spaces: There is no pleural effusion or pneumothorax. Heart/Mediastinum: Cardiomediastinal contours are unremarkable. Bones/joints: Bones are unremarkable. XR/XR chest 1V portable [id number] IMPRESSION: No acute findings. Radiation Dose CTDIVOL = (mGy): DLP = (mGy-cm)
[2021-02-26 20:07] LABS: Basophils # 0.1 10^3/uL (0.0-0.1); Basophils % 0.8 %; Eosinophils # 0.2 10^3/uL (0.0-0.8); Eosinophils % 2.8 %; Hematocrit 36.5 % (37.0-47.0); Lymphocytes # 1.2 10^3/uL (0.8-4.8); Lymphocytes % 18.8 %; Mean Corpuscular HGB Conc 32.9 g/dL (30.0-36.0); Mean Corpuscular Hemoglobin 31.3 pg (28.0-34.0); Mean Corpuscular Volume 95.1 fl (81-99); Monocytes # 0.5 10^3/uL (0.2-0.9); Monocytes % 8.5 %; Neutrophils % 68.2 %; Nucleated Red Blood Cells % 0 %; Platelet Count 202 10^3/cmm (130-400); Red Blood Count 3.84 10^6/uL (4.1-5.3); Red Cell Distribution Width 13.2 % (12.1-15.1); White Blood Count 6.3 10^3/uL (4.0-10.0)
[2021-02-26 20:25] LABS: Add Urine Microscopic? NO; Charge for UA Resulting for Rev
[2021-02-26] MEDS: iohexol 300 mg/mL 100 mL Btl IV (20:31)
--- NOTE | 2021-02-26 20:32 | PC.NURSE ---
urine output 250 mL
[2021-02-26 20:41] LABS: Urine Appearance Clear (CLEAR); Urine Color Straw (Yellow); pH Urine 7 (5-7)
[2021-02-26 20:42] LABS: Bilirubin Urine Neg (Negative); Blood Urine Neg (Negative); Glucose Urine UA Norm (Normal); Ketones Urine Negative (Negative); Leukocyte Esterase Urine Negative (Negative); Nitrate Urine Negative (Negative); Protein Urine Neg (Negative); Urobilinogen Urine Norm (Negative)
[2021-02-26 20:54] LABS: Troponin(5th) Baseline 18 ng/L (0-10)
[2021-02-26] MEDS: midazolam 1 mg/mL INJ 2 mL 5 MG IVP (20:55)
[2021-02-26 20:56] LABS: Alkaline Phosphatase 61 IU/L (35-105); Blood Urea Nitrogen 11 mg/dL (8-23); Calcium 9.6 mg/dL (8.5-10.5); Carbon Dioxide 24 mmol/L (22-29); Chloride 108 mmol/L (98-107); Globulin 3.1 g/dL (1.3-4.6); Glucose 128 mg/dL (65-115); Lipase 29 U/L (13-60); Osmolality Calculated 295 mOsm/kg (285-295); Sodium 142 mmol/L (136-145); Total Bilirubin 0.4 mg/dL (0.15-1.2); Total Protein 7.1 g/dL (6.6-8.7)
[2021-02-26 20:58] LABS: Alanine Aminotransferase 12 U/L (0-33); Anion Gap 14.3 (5-19); Aspartate Amino Transferase 20 U/L (0-32); Potassium 4.3 mmol/L (3.5-5.1)
[2021-02-26 22:39] VITALS: BP 141/80; PULSE 65; RESP 15; O2SAT 97
[2021-02-26 22:42] LABS: Total Protein CSF 27 mg/dL (15-45)
[2021-02-26] MEDS: cefTRIAXone 1,000 MG in sodium chloride 0.9% (plus) 50 ML 100 MG IV (23:12)
[2021-02-26] MEDS: metroNIDAZOLE IV 500 MG/100 ML PREMIX 100 MG IV (23:13)
[2021-02-26 23:35] VITALS: BMI 34.1
[2021-02-27] VITALS (7 sets, daily range): BP systolic 159–186; BP diastolic 61–77; PULSE 66–85; RESP 16–18; TEMP 36.4–37; O2SAT 92–97
[2021-02-27 01:10] LABS: Mononuclear WBC CSF % 0 % (50-90); Polynuclear Cells ,CSF # 0.001 10^3/uL (0-10); Polynuclear WBC CSF % 100 % (0-10); Red Blood Cell CSF 0 10^3/uL (0-0); White Blood Cell CSF 1 /uL (0-5)
--- NOTE | 2021-02-27 01:14 | PM.HP ---
Providers/Chief Complaint Admitting Physician: Terra Washington MD Primary Care Provider: Jae Melgar MD Chief Complaint: AMS/POST FALL History of Present Illness Maria Ines Jackson is a 80 year old female with a past medical history of advanced dementia, with behavioral disturbances, known to be aggressive in the past, brought from the [facility] today after being noted to have 2 episodes of fall. Patient was reportedly found on the floor after she attempted to get out of the bed. Was found lying down on her buttocks. X-ray of the knee was performed due to reported pain after the fall which did not reveal any acute fractures. There was concern that patient appeared to be more somnolent and lethargic than usual and was sent to the ER for further evaluation. Per [facility] staff, her pupils were also noted to be reacting poorly. At baseline patient is confused, conversant, somewhat aggressive. Her dose of Haldol decanoate was recently increased to 50 mg IM twice daily.She had previously been on Zyprex. Upon presentation to the ER, she was noted to be wincing to touch on abdominal exam for which CT of the abdomen and pelvis was performed and showed sigmoid diverticulitis. Reportedly patient has not complained of any abdominal pain, diarrhea, nausea or vomiting. Her p.o. intake is that of her regular diet, waxes and wanes between day today. CT of her head today does not show any acute intracranial events. While she was undergoing the CAT scan, reportedly patient had 2 episodes of tonic-clonic seizure-like activity. No recent history of fever. Upon my assessment patient is lethargic, obtunded, however she has recently received Versed to perform lumbar puncture. She is hypertensive with blood pressure 186/66, she is moving all extremities while laying in bed, resists examination by withdrawing from touch. Review of Systems General: Reports: 10 or more systems reviewed and unremarkable except in HPI and below Const: Denies: fever(s), chills or body aches Eyes: Denies: change in vision, blurry vision or photophobia ENMT: Reports: hoarseness; Denies: throat pain, enlarged tonsils, odynophagia or nasal congestion Card: Denies: chest pain, palpitations, irregular heart rhythm, edema, swelling of feet/ankles, lightheadedness, pre-syncope, dyspnea on exertion or orthopnea Resp: Denies: dyspnea, productive cough, non-productive cough, wheezing, stridor, pain on inspiration, change in phlegm color, hemoptysis or chest congestion GI: Denies: abdominal pain, nausea, vomiting, hematemesis, coffee ground emesis, dysphagia, heartburn, diarrhea, constipation, GI cramping, change in stool character, hematochezia or melena : Denies: flank pain, difficulty voiding, dysuria, urinary frequency, urinary urgency, urinary hesitancy or hematuria Musc: Denies: neck pain, back pain, extremity pain, joint swelling, joint warmth or deformity Neuro: Denies: headache(s), numbness in extremities, weakness in extremities, sensory changes, difficulty walking, frequent falls, dizziness, vertigo, behavioral changes, Slurred speech present or seizure-like activity Psych: Denies: anxiety, depression, suicidal ideation or homicidal ideation Endo: Denies: polyuria, polydipsia, tired all the time, cold intolerance or hot flashes Mathew/Lymph: Denies: easy bruising or easy bleeding Medications/Allergies Home Medications Medication Instructions Recorded Confirmed Last Taken Type memantine 5 mg PO DAILY@0800 11/26/20 01/18/21 Unknown History metformin 500 mg PO DAILY 11/26/20 01/18/21 Unknown History sertraline 50 mg PO DAILY 11/26/20 01/18/21 Unknown History donepezil 5 mg PO BEDTIME@2000 01/18/21 01/18/21 Unknown History haloperidol lactate [Haldol] 5 mg IM ONCE 01/18/21 01/18/21 01/18/21 History lorazepam 0.5 mg PO BID@0600,1400 01/18/21 01/18/21 Unknown History lorazepam 0.5 mg PO DAILY PRN 01/18/21 01/18/21 01/18/21 History lorazepam 2 mg IM DAILY PRN 01/18/21 01/18/21 01/18/21 History Allergies Allergy/AdvReac Type Severity Reaction Status Date / Time No Known Allergies Allergy Verified 01/29/20 23:56 PFSH Acute PFSH: Medical History Dementia Vitals/I&O/Wt Last Vital Signs Temp 97.9 F 02/27/21 00:00 Pulse 85 02/27/21 00:00 Resp 18 02/27/21 00:00 BP 186/66 02/27/21 00:00 Pulse Ox 95 02/27/21 00:00 02/26/21 02/26/21 02/27/21 14:59 22:59 06:59 Intake Total 50 / 50 Balance 50 / 50 Weight last 48 hrs Weight 104.8 kg Weight 79.379 kg Physical Exam Narrative: EXAM NARRATIVE: General: No acute distress, lying in bed covered in 2 blankets, resists attempting to take off blankets for examination, does not open eyes to calling name or touch, obtunded and confused. HEENT: pupils bilaterally equal and reactive Chest: Normal vesicular breath sounds, no added sounds, equal good air entry bilaterally CVS: S1-S2 regular, no murmurs, no tachycardia, no gallops, no rubs Abdomen: Soft, no gross distention, unable to a certain tenderness as patient winces to touch everywhere. Neuro: No focal deficits, no facial deformity, AO x3, power 5/5 in all limbs Extremities: Healthy surgical dressing present on the right hip, mild tenderness, soft no erythema. Data : 02/26/21 19:55 02/26/21 19:55 Attestation for Other Data: I personally reviewed and interpreted the following: Other data: Laboratory Results WBC 6.3 10^3/uL (4.0-10.0) 02/26/21 19:55 RBC 3.84 10^6/uL (4.1-5.3) L 02/26/21 19:55 Hgb 12.0 g/dL (11.5-15.3) 02/26/21 19:55 Hct 36.5 % (37.0-47.0) L 02/26/21 19:55 MCV 95.1 fl (81-99) 02/26/21 19:55 MCH 31.3 pg (28.0-34.0) 02/26/21 19:55 MCHC 32.9 g/dL (30.0-36.0) 02/26/21 19:55 RDW 13.2 % (12.1-15.1) 02/26/21 19:55 Plt Count 202 10^3/cmm (130-400) 02/26/21 19:55 MPV 11.0 fL (7.4-10.4) H 02/26/21 19:55 Neut % (Auto) 68.2 % 02/26/21 19:55 Lymph % (Auto) 18.8 % 02/26/21 19:55 [place] % (Auto) 8.5 % 02/26/21 19:55 Eos % (Auto) 2.8 % 02/26/21 19:55 Baso % (Auto) 0.8 % 02/26/21 19:55 Neut # (Auto) 4.30 10^3/uL (1.8-7.7) 02/26/21 19:55 Lymph # (Auto) 1.2 10^3/uL (0.8-4.8) 02/26/21 19:55 [place] # (Auto) 0.5 10^3/uL (0.2-0.9) 02/26/21 19:55 Eos # (Auto) 0.2 10^3/uL (0.0-0.8) 02/26/21 19:55 Baso # (Auto) 0.1 10^3/uL (0.0-0.1) 02/26/21 19:55 Nucleated RBC % (auto) 0 % 02/26/21 19:55 Nucleated RBCs # 0.0 /100WBC 02/26/21 19:55 Sodium 142 mmol/L (136-145) 02/26/21 19:55 Potassium 4.3 mmol/L (3.5-5.1) 02/26/21 19:55 Chloride 108 mmol/L (98-107) H 02/26/21 19:55 Carbon Dioxide 24 mmol/L (22-29) 02/26/21 19:55 Anion Gap 14.3 (5-19) 02/26/21 19:55 BUN 11 mg/dL (8-23) 02/26/21 19:55 Creatinine 0.5 mg/dL (0.5-0.9) 02/26/21 19:55 GFR Calculation Not Reportable 02/26/21 19:55 Glucose 128 mg/dL (65-115) H 02/26/21 19:55 Calculated Osmolality 295 mOsm/kg (285-295) 02/26/21 19:55 Calcium 9.6 mg/dL (8.5-10.5) 02/26/21 19:55 Total Bilirubin 0.4 mg/dL (0.15-1.2) 02/26/21 19:55 AST 20 U/L (0-32) 02/26/21 19:55 ALT 12 U/L (0-33) 02/26/21 19:55 Alkaline Phosphatase 61 IU/L (35-105) 02/26/21 19:55 Troponin T Baseline 18 ng/L (0-10) H 02/26/21 19:55 Total Protein 7.1 g/dL (6.6-8.7) 02/26/21 19:55 Albumin 4.0 g/dL (3.5-5.2) 02/26/21 19:55 Globulin 3.1 g/dL (1.3-4.6) 02/26/21 19:55 Lipase 29 U/L (13-60) 02/26/21 19:55 Urine Color Straw (Yellow) 02/26/21 20:20 Urine Appearance Clear (CLEAR) 02/26/21 20:20 Urine pH 7 (5-7) 02/26/21 20:20 Ur Specific [place] 1.000 (1.005-1.030) L 02/26/21 20:20 Urine Protein Neg (Negative) 02/26/21 20:20 Urine Glucose (UA) Norm (Normal) 02/26/21 20:20 Urine Ketones Negative (Negative) 02/26/21 20:20 Urine Blood Neg (Negative) 02/26/21 20:20 Urine Nitrate Negative (Negative) 02/26/21 20:20 Urine Bilirubin Neg (Negative) 02/26/21 20:20 Urine Urobilinogen Norm mg/dL (Negative) 02/26/21 20:20 Ur Leukocyte Esterase Negative (Negative) 02/26/21 20:20 CSF Appearance Clear (CLEAR) 02/26/21 22:15 CSF Color Colorless (COLORLESS) 02/26/21 22:15 CSF WBC 1 /uL (0-5) 02/26/21 22:15 CSF RBC 0 10^3/uL (0-0) 02/26/21 22:15 CSF Mononuclear # Auto 0.000 10^3/uL (50-90) L 02/26/21 22:15 CSF Mononuclear WBCs % 0 % (50-90) L 02/26/21 22:15 CSF Polynuclear WBCs # 0.001 10^3/uL (0-10) 02/26/21 22:15 CSF Polynuclear WBCs % 100 % (0-10) H 02/26/21 22:15 CSF Total Protein 27 mg/dL (15-45) 02/26/21 22:15 Impressions Abdomen/Pelvis CT 02/26/21 19:45 IMPRESSION: 1. No sign of significant traumatic injury in the abdomen or pelvis. 2. Acute uncomplicated distal sigmoid diverticulitis. 3. Incidental findings above. Radiation Dose CTDIVOL = (mGy): DLP = 1786.72 (mGy-cm) Head CT 02/26/21 19:45 IMPRESSION: 1. No acute intracranial abnormality demonstrated. 2. There is no interval change from the prior examination. Radiation Dose CTDIVOL = (mGy): DLP = 762.1 (mGy-cm) Chest X-Ray 02/26/21 20:01 IMPRESSION: No acute findings. Radiation Dose CTDIVOL = (mGy): DLP = (mGy-cm) A&P Assessment and plan (1) Diverticulitis: Status: Acute (2) Dementia: Status: Acute Qualifiers: Dementia type: Alzheimer's Alzheimer's disease onset: unspecified onset Dementia behavioral disturbance: with behavioral disturbance Qualified Code(s): G30.9 - Alzheimer's disease, unspecified; F02.81 - Dementia in other diseases classified elsewhere with behavioral disturbance (3) Altered mental status: Status: Acute Qualifiers: Altered mental status type: stupor Qualified Code(s): R40.1 - Stupor Additional A&P Information Patient presenting with reported history from [facility] as above detailed in HPI. Diverticulitis noted on CT of the abdomen and pelvis, no current signs of gross sepsis. Currently start on clear liquid diet only Empiric antibiotic coverage with ceftriaxone and Flagyl has already started IV fluid hydration at 50 cc/h Reported history of tonic-clonic seizure while in the CAT scan No current episodes witnessed since return to the ED Unable to assess for postictal state at this time, patient had received benzodiazepines to perform lumbar puncture Due to concern for new onset seizures at advanced age, lumbar puncture was performed to rule out meningoencephalitis. CSF protein is the only result available thus far, normal at 27. Pending CSF glucose Gram stain and cell count. Lower suspicion for encephalitis, will await pending CSF studies. Recent TSH on 01/18 within range. We will recheck today. 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
[2021-02-27 01:16] LABS: Appearance CSF CLEAR (CLEAR); Color CSF COLORLESS (COLORLESS)
[2021-02-27 01:23] LABS: Glucose CSF 76 mg/dL (40-70)
[2021-02-27] MEDS: sodium chloride 0.45% 1,000 ML 50 ML IV ×2 (02:00→22:00)
[2021-02-27 03:35] LABS: Prolactin 23.32 ng/mL (4.8-23.3)
[2021-02-27] MEDS: enoxaparin 40 mg/0.4 mL Syringe SUBCUT (03:53)
--- NOTE | 2021-02-27 05:27 | PC.NURSE ---
Patient arrived to floor from ED via cart, patient is not AAOx4, she groans but does not make words. Was not able to complete the admission documentation. Patient in bed, room clutter free, bed alarm on, call light in reach. No new events with no needs at this time. Room set up with seizure precautions. Patient repositioned frequently. WIll continue to monitor until report and patient handoff to oncoming nurse at shift change.
[2021-02-27 06:37] LABS: Procalcitonin 0.05 ng/mL (0-0.5); Thyroid Stimulating Hormone 1.67 uIU/mL (0.27-4.20)
[2021-02-27 06:49] LABS: Alanine Aminotransferase 11 U/L (0-33); Albumin Level 3.4 g/dL (3.5-5.2); Alkaline Phosphatase 54 IU/L (35-105); Anion Gap 15.2 (5-19); Aspartate Amino Transferase 17 U/L (0-32); Blood Urea Nitrogen 9 mg/dL (8-23); Calcium 8.9 mg/dL (8.5-10.5); Carbon Dioxide 24 mmol/L (22-29); Chloride 106 mmol/L (98-107); Globulin 3.2 g/dL (1.3-4.6); Glucose 118 mg/dL (65-115); Osmolality Calculated 294 mOsm/kg (285-295); Potassium 3.2 mmol/L (3.5-5.1); Sodium 142 mmol/L (136-145); Total Bilirubin 0.3 mg/dL (0.15-1.2); Total Protein 6.6 g/dL (6.6-8.7)
--- NOTE | 2021-02-27 10:35 | PC.CHAP ---
Pastoral Care Encounter/Spiritual Assessment Type of Contact [] Declined pointing machine operator visit [] Patient/Family/Request visit [] Outpatient visit [] Follow-up visit [] Physician referral [] Code/Alert [] Routine visit [] Staff referral [] Actively dying [] Patient sleeping [] Family support [] [] Out of room [] Palliative care [] [x] Receiving care in room [] Pre-surgical visit [] Trauma [] Long length of stay [] ICU visit [] Other: Relational/Emotional Strength [] Patient feels connected with others/family/visitors/staff [] Distress [] Loneliness/isolation [] Abandonment Spirituality of Patient [] Person of Leelee [] Attends Confucianism of their Leelee [] Believes in Prayer [] Reads Bible or Sikhism materials [] There are Spiritual issues to be addressed Engineering Drafter Interventions [] Prayer [] Active listening [] Non-anxious presence [] Spiritual/emotional support [] Crisis/trauma care [] Spiritual counseling [] Bereavement support [] Provided bereavement packet [] Provided Bible/devotional materials [] Provided toy/stuffed animal, coloring book to patient or family member [] Provided Communion [] Anointing/[place] [] Salvation [] Completed spiritual assessment [] Other: Impact on Illness or Injury [] Angry [] Fearful [] Anxious [] Often cries [] Exhaustion [] Unable to work [] Unable to attend alevism [] Unable to walk/stand [] Unable to read [] Unable to drive [] Unable to eat/drink [] Unable to sleep [] Unable to be with family [] Patient intubated [] Other: Summary Time spent with patient
[2021-02-27] MEDS: metroNIDAZOLE IV 500 MG/100 ML PREMIX 100 MG IV ×2 (11:10→23:05)
--- NOTE | 2021-02-27 11:38 | PC.PHAR ---
pt is from [facility] faxed medication mar and treatment list
--- NOTE | 2021-02-27 13:35 | P.PN_ITS ---
Subjective Subjective: Interval history: Patient was seen at the bedside. Overnight events noted H&P and CSF studies noted. CSF unremarkable head CT unremarkable High prolactin noted This morning she was not able to comprehend my commands however her speech seemed normal no dysarthria noted, no cogwheel rigidity noted on active motion of extremities I did not notice any myoclonus Pupils are equal Does not seem to have any focal deficits She does seem to have vocal and motor tics As per the nursing report she was started on Lamictal for her mood stabilization Vitals/I&O/Wt Last Vital Signs Temp 98.6 F 02/27/21 11:47 Pulse 74 02/27/21 11:47 Resp 17 02/27/21 11:47 BP 159/73 02/27/21 11:47 Pulse Ox 97 02/27/21 11:47 02/26/21 02/27/21 02/27/21 22:59 06:59 14:59 Intake Total 150 / 150 1060 / 1060 Output Total 400 / 400 Balance 150 / 150 660 / 660 Weight last 48 hrs Weight 48.534 kg Weight 47.536 kg Weight 104.8 kg Weight 79.379 kg Physical Exam Narrative: EXAM NARRATIVE: Patient was laying supine When I entered the room she was try to get out of the bed I did not notice any cogwheel rigidity on active motion of extremities There was no evidence of myoclonus Ankle and knee reflexes equivocal No muscle Pupils are equal Patient is not able to follow commands However her speech seems normal no dysarthria S1, S2 Clinically looks dehydrated No audible stridor or wheezing Saturating well on room air Abdomen soft bowel sounds sluggish Data : 02/26/21 19:55 02/27/21 05:24 Micro: Microbiology 02/26/21 22:15 Cryptococcal Antigen - Final Cerebrospinal Fluid A&P Assessment and plan (1) Dementia: Status: Acute Qualifiers: Alzheimer's disease onset: unspecified onset Dementia behavioral disturbance: with behavioral disturbance Dementia type: Alzheimer's Qualified Code(s): G30.9 - Alzheimer's disease, unspecified; F02.81 - Dementia in other diseases classified elsewhere with behavioral disturbance (2) Altered mental status: Status: Acute Qualifiers: Altered mental status type: stupor Qualified Code(s): R40.1 - Stupor (3) Diverticulitis: Status: Acute (4) Seizure: Status: Acute Additional A&P Information Active issues Altered mental status Diverticulitis Hypokalemia High prolactin Delirium with underlying dementia Has history of vascular, senile dementia At baseline she exhibits hyperactive/aggressive behavior at the shelter, she has fallen twice, no new medication has been added she has been on Lamictal 50 mg 3 times a day for mood stabilization, she is also on SSRI 50 mg daily Does not have typical serotonin syndrome features, no myoclonus on physical exam Does not have focal deficits, no cogwheel rigidity or spasticity Reflexes are equivocal No dysarthria She does exhibit vocal and motor tics which could be related to her underlying dementia, I have requested lamotrigine level For now for breakthrough seizures I would keep her on Keppra IV regimen for now CSF unremarkable She has been afebrile, she is on ceftriaxone for diverticulitis incidental finding on CT abdomen Will request Dr. Giang to evaluate her as well I do see Haldol, benzodiazepines, olanzapine, sertraline, lamotrigine in her home medications, polypharmacy drug to drug interaction will be in my differentials as well CT head unremarkable other than chronic age-related changes Does not have typical symptoms and blood chemistry of drug overdose I do not suspect meningoencephalitis at all TSH is normal, requested B12 level Hypokalemia: Repleted DNR/DNI Advance diet once she is more awake and alert continue clear liquid diet for now DVT prophylaxis Lovenox Attestations Medical Necessity Statement*: continue med management Time Spent in Patient Care: 16 - 35 minutes Coding Level of Care Code Acute Inventory Analyst for Raul De La Torre Diagnoses Dementia G30.9; F02.81 Alzheimer's disease onset: unspecified onset Dementia behavioral disturbance: with behavioral disturbance Dementia type: Alzheimer's Altered mental status R40.1 Altered mental status type: stupor Diverticulitis K57.92 Seizure R56.9
[2021-02-27] MEDS: OLANZapine 10 mg VIAL 5 MG IM ×2 (16:45→16:49)
[2021-02-27] MEDS: water for injection-sterile 10 ML (16:49)
--- NOTE | 2021-02-27 19:23 | PM.CONSULT ---
Providers/Reason For Consult Consulting Physician/Specialty*: Pravin Burrell Reason for Consult*: Encephalopathy Attending Physician: Pravin Burrell MD Primary Care Provider: Jae Melgar MD History of Present Illness History of Present Illness Maria Ines Jackson is a 80 year old with dementia. She was sent because of changes in her voice, drowsiness and frequent falls. She was seen by my partner, Dr. Dawkins, with early Lewy body disease in July 2013. At that time she had a tremor, loss of sense of smell, mild hallucinations. Her score on the Mini-Mental status exam was abnormal, 22 out of 30. He started her on Aricept and her mental status improved somewhat. She is frequently seen in our emergency department for confusion. Apparently she was left to live at home with her but was caught outside wandering and having hallucinations in January of last year. She was wandering outside her home again in May and had already been hospitalized at a [place] [facility] in [place] for several weeks.She refused to take her medication and was a behavioral problem. The niece picked her up in November because of escalating agitation and profound confusion. She was transferred to [facility]. She returned to our emergency department less than a month later in December for aggressive behavior at the facility that she was residing in. She was apparently in a group home although the location of her residence was never mentioned in the ER note. She was evaluated by Dr. Narvaez who did not see any reason for an inpatient stay or any benefit of staying. She returned again needing medical clearance to be transferred again to the [place] [facility] 01/18/2021. She was given Haldol to get her calm enough for the transfer, and her medication list indicates that she was on Haldol Decanoate 50 mg IM every 14 days at discharge. She now resides at [facility]. Her best state is profoundly confused and aggressive. She is on Haldol decanoate 50 mg intramuscularly twice daily. She took a fall several times in the group home. Personnel said that she was more confused than usual and that is why they sent her to the ER for evaluation 02/26/2021. Dr. Miles admitted her after establishing that she had no focal findings, a normal CBC, normal complete metabolic panel and urinalysis and normal CT scan of the head. During CT of the head the diesel technology instructor said she had some kind of seizure-like movements. By normal CT of the head, she has profound diffuse atrophy that is unchanged. Since hospitalization she had normal spinal fluid. Review of Systems General: Reports: ROS unobtainable due to mental status (She has not been febrile) Meds/Allergies Home Medications and Allergies Home Medications Medication Instructions Recorded Confirmed Last Taken Type memantine 5 mg PO DAILY@0800 11/26/20 02/27/21 Unknown History metformin 500 mg PO DAILY@11/26/20 02/27/21 Unknown History sertraline 50 mg PO DAILY@11/26/20 02/27/21 Unknown History alprazolam 0.5 mg PO BID PRN 02/27/21 02/27/21 Unknown History haloperidol decanoate 50 mg IM Q14D 02/27/21 02/27/21 02/23/21 History lamotrigine 50 mg PO TID@08,14,20 02/27/21 02/27/21 Unknown History lorazepam 0.5 mg PO Q8H PRN 02/27/21 02/27/21 Unknown History lorazepam [Lorazepam Intensol] See Rx Instructions .ROUTE .COMPLEX 02/27/21 02/27/21 Unknown History olanzapine 10 mg PO DAILY@08 02/27/21 02/27/21 Unknown History Allergies Allergy/AdvReac Type Severity Reaction Status Date / Time No Known Allergies Allergy Verified 02/27/21 11:38 Current Medications Current Medications Generic Name Dose Route Start Last Admin Trade Name Freq PRN Reason Stop Dose Admin Enoxaparin Sodium 40 mg 02/27/21 04:00 02/27/21 03:53 Enoxaparin 40 Mg/0.4 Ml Syringe SUBCUT 40 mg Q24H LINDA Administration Metronidazole 500 mg in 100 mls @ 100 mls/hr 02/27/21 11:00 02/27/21 12:39 Flagyl Iv IV Infused Q12H LINDA Infusion Protocol Sodium Chloride 1,000 mls @ 50 mls/hr 02/27/21 01:15 02/27/21 02:00 Sodium Chloride 0.45% IV 50 mls/hr .Q20H LINDA Administration Levetiracetam 500 mg/ Sodium 105 mls @ 420 mls/hr 02/27/21 16:00 02/27/21 17:25 Chloride IV Infused Q12H LINDA Infusion Pantoprazole Sodium 40 mg 02/27/21 09:00 02/27/21 07:[address] 40 Mg Tablet PO Not Given DAILY LINDA PFSH Acute PFSH: Medical History Dementia Vitals/I&O/Wt Last Vital Signs Temp 97.6 F 02/27/21 15:32 Pulse 75 02/27/21 15:32 Resp 17 02/27/21 15:32 BP 181/74 02/27/21 15:32 Pulse Ox 93 02/27/21 15:32 02/27/21 02/27/21 02/27/21 06:59 14:59 22:59 Intake Total 150 / 150 1060 / 1060 225 / 1285 Output Total 400 / 400 Balance 150 / 150 660 / 660 225 / 885 Weight last 48 hrs Weight 107 lb Weight 104 lb 12.8 oz Weight 231 lb 0.711 oz Weight 175 lb Physical Exam Narrative: EXAM NARRATIVE: GENERAL: The patient was thin. She was neatly groomed and asleep in bed. MENTAL STATUS: She was asleep and did not want to wake up. She asked me who I am. She would not say her name and she would not follow commands. She repeatedly covered herself. CRANIAL NERVES: Grimace was symmetric. Eye movements spontaneously full. She resists eye opening. Speech was soft. MOTOR: Diffuse gegenhalten with excellent strength. SENSATION: She withdrew from touch in all 4 extremities COORDINATION: No tremor. DEEP TENDON REFLEXES: Not obtainable. Toes downgoing GAIT: Refused HEENT: Normocephalic without dysmorphic features. Conjunctivae were not injected and sclerae were nonicteric. NECK: Carotid upstroke was strong bilaterally without bruits. The thyroid was not enlarged and there were no palpable lymph nodes. CHEST: Clear to auscultation. CARDIOVASCULAR: The heart sounds were normal without murmur or gallop. Regular rate and rhythm. EXTREMITIES: There was no edema or cyanosis. The skin was unremarkable. The spine exhibited normal thoracic kyphosis and normal lumbar lordosis without deformities. Data Micro: Micro: Microbiology 02/26/21 22:15 Gram Stain - Final Cerebrospinal Flu id 02/26/21 22:15 Cryptococcal Antig en - Final Cerebrospinal Flu id A&P Assessment and plan (1) Lewy body dementia: 80-year-old woman who has been demented for at least 7 years with history of hallucinosis and agitated behavior. She most likely suffers from Lewy body disease versus Alzheimer disease with behavioral disorder. It looks to me like her greatest need is for a local provider. Her care is being managed by serial inpatient psychiatric hospitalizations and she has been placed on a very high dose of Haldol which is likely to cause severe extraparametal side effects if she indeed has Lewy body disease. On the other hand, she has been violent and difficult to manage and requires group home care as her least restrictive safe environment. I will be glad to manage her care as an outpatient. She should go back to the group home on current medications. Status: Acute Consult Attestations Medical Necessity Statement: Obtunded mental status most likely secondary to Haldol decanoate Time Spent in Patient Care: Greater than 35 minutes (>than 50% of time spent in counselling and/or direct pt care on unit). Coding Level of Care Code Acute Piece Dye Worker for Raul De La Torre Diagnoses Lewy body dementia G31.83; F02.80
[2021-02-27] MEDS: cefTRIAXone 1,000 MG in sodium chloride 0.9% (plus) 50 ML 100 MG IV (22:26)
[2021-02-28] VITALS: BP 172/69; PULSE 75; RESP 16; TEMP 36.4; O2SAT 91
[2021-02-28 01:11] VITALS: PULSE 72; O2SAT 94
[2021-02-28 04:00] VITALS: BP 184/73; PULSE 78; RESP 16; TEMP 36.9; O2SAT 93
[2021-02-28] MEDS: enoxaparin 40 mg/0.4 mL Syringe SUBCUT (05:07)
[2021-02-28 05:09] LABS: Basophils % 0.8 %; Eosinophils # 0.2 10^3/uL (0.0-0.8); Eosinophils % 4.4 %; Hemoglobin 11.3 g/dL (11.5-15.3); Lymphocytes # 1.1 10^3/uL (0.8-4.8); Lymphocytes % 21.5 %; Mean Corpuscular HGB Conc 32.3 g/dL (30.0-36.0); Mean Corpuscular Hemoglobin 30.5 pg (28.0-34.0); Mean Corpuscular Volume 94.3 fl (81-99); Mean Platelet Volume 11.4 fL (7.4-10.4); Monocytes # 0.6 10^3/uL (0.2-0.9); Monocytes % 10.7 %; Neutrophils # 3.23 10^3/uL (1.8-7.7); Neutrophils % 61.5 %; Nucleated Red Blood Cells % 0 %; Platelet Count 200 10^3/cmm (130-400); Red Blood Count 3.71 10^6/uL (4.1-5.3); White Blood Count 5.3 10^3/uL (4.0-10.0)
[2021-02-28 05:13] VITALS: BMI 15.7
[2021-02-28 05:38] LABS: Alanine Aminotransferase 9 U/L (0-33); Albumin Level 3.2 g/dL (3.5-5.2); Alkaline Phosphatase 51 IU/L (35-105); Aspartate Amino Transferase 18 U/L (0-32); Blood Urea Nitrogen 6 mg/dL (8-23); Calcium 8.5 mg/dL (8.5-10.5); Carbon Dioxide 23 mmol/L (22-29); Chloride 106 mmol/L (98-107); Globulin 3.3 g/dL (1.3-4.6); Glucose 109 mg/dL (65-115); Osmolality Calculated 286 mOsm/kg (285-295); Sodium 139 mmol/L (136-145); Total Bilirubin 0.4 mg/dL (0.15-1.2); Total Protein 6.5 g/dL (6.6-8.7)
[2021-02-28 05:40] LABS: Anion Gap 13.2 (5-19); Potassium 3.2 mmol/L (3.5-5.1)
[2021-02-28 06:38] LABS: Vitamin B12 500 pg/mL (232-1245)
[2021-02-28 07:47] VITALS: BP 114/64; PULSE 78; RESP 18; TEMP 36.9; O2SAT 94
[2021-02-28] MEDS: ALPRAZolam 0.5 mg Tablet PO (08:07)
--- NOTE | 2021-02-28 09:57 | PC.CHAP ---
Pastoral Care Encounter/Spiritual Assessment Type of Contact [] Declined adhesion tester visit [] Patient/Family/Request visit [] Outpatient visit [] Follow-up visit [] Physician referral [] Code/Alert [X] Routine visit [] Staff referral [] Actively dying [X] Patient sleeping [] Family support [] [] Out of room [] Palliative care [] [] Receiving care in room [] Pre-surgical visit [] Trauma [] Long length of stay [] ICU visit [] Other: Relational/Emotional Strength [] Patient feels connected with others/family/visitors/staff [] Distress [] Loneliness/isolation [] Abandonment Spirituality of Patient [] Person of Leelee [] Attends Restorationism of their [place]lee [] Believes in Prayer [] Reads Bible or Orthodox materials [] There are Spiritual issues to be addressed Ice Cream Chef Interventions [] Prayer [] Active listening [] Non-anxious presence [] Spiritual/emotional support [] Crisis/trauma care [] Spiritual counseling [] Bereavement support [] Provided bereavement packet [] Provided Bible/devotional materials [] Provided toy/stuffed animal, coloring book to patient or family member [] Provided Communion [] Anointing/[place] [] Salvation [] Completed spiritual assessment [] Other: Impact on Illness or Injury [] Angry [] Fearful [] Anxious [] Often cries [] Exhaustion [] Unable to work [] Unable to attend pentecostal [] Unable to walk/stand [] Unable to read [] Unable to drive [] Unable to eat/drink [] Unable to sleep [] Unable to be with family [] Patient intubated [] Other: Summary Time spent with patient
--- NOTE | 2021-02-28 10:38 | PM.DCS ---
Discharge Providers Date of Admission: 02/27/21 16:56 Date of Discharge: February 28, 2021 Attending Provider at Admission: Terra [place] MD Attending Provider at Discharge: Pravin Burrell MD Primary Care Provider: Jae Melgar MD Diagnoses at Discharge Discharge Diagnosis (1) Lewy body dementia: Status: Acute Reason for Visit Reason for Visit: AMS/POST FALL Hospital Course Hospital Course Maria Ines Jackson is a 80 year old female with a past medical history of advanced dementia, with behavioral disturbances, known to be aggressive in the past, brought from the halfway [facility] after 2 episodes of fall, drowsiness and voice change. CT head unremarkable, CSF panel unremarkable, CBC BMP unremarkable, incidental finding of noncomplicated diverticulitis on CT abdomen pelvis. 2 episodes of tonic-clonic seizure-like activity noticed by CT scan tach at the time of admission. She was put on antibiotics for diverticulitis, no recurrence of tonic-clonic seizure-like activities during hospitalization after the initial event, she was kept on Keppra 500 mg IV every 12 hours, lamotrigine level requested, patient did not exhibit any focal deficits, no cogwheel rigidity, spasticity or myoclonus identified. No strokelike symptoms. I did consult Dr. Giang to help me identify her underlying etiology for her vocal and motor tics. Kindly see neurology consult note for further details. She did recommend outpatient follow-up and discharging patient on her regular medications because of her aggressive/violent behavior history. I increased the dose of Lamictal to 100 mg 3 times a day from 50 mg 3 times a day. Patient remained afebrile, at the time of discharge patient is able to tell me her name, she is only oriented to herself, she is not able to tell me her date of however speech is normal and she does make eye contact, tries to get out of bed no focal deficits identified on the day of discharge as well. Physical Exam Narrative: EXAM NARRATIVE: Patient is able to make eye contact, tells me her name Pupils are equal and reactive No dysarthria S1, S2 Looks euvolemic Lower extremity no edema Abdomen soft No audible stridor or wheezing Not able to tell me date of , oriented to herself No strokelike symptoms No focal deficit Reflexes equivocal Babinski negative Discharge Data Data Completed and Pending: Completed Studies During Hospitalization Category Date Time Status CT abdomen pelvis w con* [id number] Urge nt Cat Scan 02/26/21 19:[address] head wo con* [id number] Urgent Cat Scan 02/26/21 19:45 Completed XR chest 1V sandra ble [id number] Urgent Exams 02/26/21 20:01 Completed Pending at discharge Category Date Time Status CSF Culture & Gra m Stain Stat Lab 02/26/21 22:15 Results Herpes Simplex Vi yumiko DNA Stat Lab 02/26/21 22:15 Received Lamotrigine (Lami ctal) Level Routin e Lab 02/27/21 05:24 Received Labs from last 24 hours 02/28/21 02/28/21 02/27/21 04:31 04:31 05:24 WBC 5.3 RBC 3.71 L Hgb 11.3 L Hct 35.0 L MCV 94.3 MCH 30.5 MCHC 32.3 RDW 13.0 Plt Count 200 MPV 11.4 H Neut % (Auto) 61.5 Lymph % (Auto) 21.5 [place] % (Auto) 10.7 Eos % (Auto) 4.4 Baso % (Auto) 0.8 Neut # (Auto) 3.23 Lymph # (Auto) 1.1 [place] # (Auto) 0.6 Eos # (Auto) 0.2 Baso # (Auto) 0.0 Nucleated RBC % (a uto) 0 Nucleated RBCs # 0.0 Sodium 139 Potassium 3.2 L Chloride 106 Carbon Dioxide 23 Anion Gap 13.2 BUN 6 L Creatinine 0.6 GFR Calculation Not Reportable Glucose 109 Calculated Osmolal ity 286 Calcium 8.5 Total Bilirubin 0.4 AST 18 ALT 9 Alkaline Phosphata se 51 Total Protein 6.5 L Albumin 3.2 L Globulin 3.3 Vitamin B12 500 Procalcitonin Cancelled TSH Cancelled Lamotrigine 02/27/21 05:24 WBC RBC Hgb Hct MCV MCH MCHC RDW Plt Count MPV Neut % (Auto) Lymph % (Auto) [place] % (Auto) Eos % (Auto) Baso % (Auto) Neut # (Auto) Lymph # (Auto) [place] # (Auto) Eos # (Auto) Baso # (Auto) Nucleated RBC % (a uto) Nucleated RBCs # Sodium Potassium Chloride Carbon Dioxide Anion Gap BUN Creatinine GFR Calculation Glucose Calculated Osmolal ity Calcium Total Bilirubin AST ALT Alkaline Phosphata se Total Protein Albumin Globulin Vitamin B12 Procalcitonin TSH Lamotrigine Pending Vitals: Last Vital Signs Temp 98.4 F 02/28/21 07:47 Pulse 78 02/28/21 07:47 Resp 18 02/28/21 07:47 BP 114/64 02/28/21 07:47 Pulse Ox 94 02/28/21 07:47 Discharge Plan Discharge Patient Disposition: Xfer SNF Condition: Stable Prescriptions: New ciprofloxacin HCl 500 mg tablet 500 mg PO BID Qty: 14 RF: 0 Flagyl 500 mg tablet 500 mg PO Q8H 7 Days Qty: 21 RF: 0 Continued metformin 500 mg Tablet 500 mg PO DAILY@08 RF: 0 sertraline 50 mg Tablet 50 mg PO DAILY@08 RF: 0 memantine 5 mg Tablet 5 mg PO DAILY@0800 RF: 0 alprazolam 0.5 mg Tablet 0.5 mg PO BID PRN (Reason: Anxiety) RF: 0 Lorazepam Intensol 2 mg/mL Concentrate See Rx Instructions .ROUTE .COMPLEX RF: 0 olanzapine 5 mg Tablet,Disintegrating 10 mg PO DAILY@08 RF: 0 lorazepam 0.5 mg Tablet 0.5 mg PO Q8H PRN (Reason: Anxiety) RF: 0 haloperidol decanoate 50 mg/mL Solution 50 mg IM Q14D RF: 0 Changed lamotrigine 25 mg Tablet 100 mg PO TID@08,14,20 30 Days Qty: 90 RF: 0 Discharge Orders: Discharge Order (Routine); Ordered 02/28/21 Ordered By: Prvain Burrell Referrals: Jae Melgar MD [Primary Care Provider] - Discharge Diet: Cardiac Discharge Attestations Time Spent in Discharge Care*: less than 30 min Quality Metrics Clinical Quality Measures During this hospital stay, did patient experience: None Coding Level of Care Code Acute Chg FW DC note Diagnoses Lewy body dementia G31.83; F02.80
[2021-02-28] MEDS: metroNIDAZOLE IV 500 MG/100 ML PREMIX 100 MG IV (11:00)
[2021-02-28 12:00] VITALS: BP 138/71; PULSE 71; RESP 16; TEMP 36.4; O2SAT 94
[2021-02-28 12:28] LABS: SARS Covid-2 Antigen Negative (Negative)
[2021-02-28 13:51] VITALS: PULSE 77; O2SAT 96
--- NOTE | 2021-03-01 09:44 | PC.SOCIAL ---
discharge follow up call made, spoke with Janis patients nurse at [facility]. She reports patient is wondering around a lot, not wanting to use her walker. Patient orientation is normal per patient. Nurse reports all medications were available and patient is taking as directed. nurse denies any questions or concerns.
[2021-03-03 23:27] LABS: Lamotrigine (Lamictal) Level 4.3 mcg/mL (4.0-18.0)
== END 2021-02-28 14:30 | disposition skilled nursing facility (03) | DRG 392 ==
LOC: ER 20:50 → MEDSURG 22:04
PROVIDERS: Admitting Provider Student in an Organized Health Care Education/Training Program; Emergency Provider Emergency Medicine; PCP Family Medicine; Visit Provider Internal Medicine
DX: K57.32 Diverticulitis of large intestine without perforation or abscess without bleeding (principal); F02.81 Dementia in other diseases classified elsewhere, unspecified severity, with behavioral disturbance; F05 Delirium due to known physiological condition; W19.XXXA Unspecified fall, initial encounter; Y92.129 Unspecified place in nursing home as the place of occurrence of the external cause; G31.83 Neurocognitive disorder with Lewy bodies; R56.9 Unspecified convulsions; I10 Essential (primary) hypertension; E87.6 Hypokalemia; Z66 Do not resuscitate
CPT/HCPCS: 36415; 62270; 70450; 71045; 74177; 80053; 80175; 81003; 82607; 82945; 83690; 84145; 84146; 84157; 84443; 84484; 85025; 87070; 87075; 87205; 87327; 87426; 87530; 89050; 93005; 96372; 96374; 99285; G0378; J0696; J1650; J1953; J2250; J3490; Q9967; S0030

== ENCOUNTER 2021-04-15 04:32 | Emergency (ER) | payer MEDICARE, SELFPAY ==
--- NOTE | 2021-04-15 04:32 | CTR_ITS ---
PROCEDURE INFORMATION: Exam: CT Head Without Contrast Exam date and time: 04/15/2021 4:32 AM Age: 81 years old Clinical indication: Injury or trauma; Fall; Blunt trauma (contusions or hematomas); Consciousness not specified TECHNIQUE: Imaging protocol: Computed tomography of the head without contrast. Radiation optimization: All CT scans at this facility use at least one of these dose optimization techniques: automated exposure control; mA and/or kV adjustment per patient size (includes targeted exams where dose is matched to clinical indication); or iterative reconstruction. COMPARISON: CT head wo con* [id number] 02/26/2021 8:24 PM RADIATION DOSE METRICS: Total DLP (mGy-cm): 849.87 FINDINGS: Brain: No acute intracranial hemorrhage or mass effect. There is decreased attenuation in the periventricular white matter, likely from microvascular disease. There is a very small old lacunar infarct in the right caudate nucleus. No definite acute infarct by CT. Cerebral ventricles: Ventricle size is normal for age. Paranasal sinuses: Mild mucosal thickening in the included upper maxillary sinuses. Included paranasal sinuses otherwise appear essentially clear. Mastoid air cells: No significant acute finding. Vasculature: Prominent vascular calcifications in the internal carotid arteries. Bones/joints: No definite acute skull fracture. Soft tissues: Prominent left periorbital soft tissue swelling CT/CT head wo con* [id number] IMPRESSION: 1. No acute intracranial hemorrhage or mass effect. 2. 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 3. Other findings discussed above. 4. Please see subsequent CT Facial Bone report for complete evaluation of the facial bones. Radiation Dose CTDIVOL = (mGy): DLP = 849.87 (mGy-cm)
--- NOTE | 2021-04-15 04:32 | CTR_ITS ---
PROCEDURE INFORMATION: Exam: CT Maxillofacial Without Contrast Exam date and time: 04/15/2021 4:32 AM Age: 81 years old Clinical indication: Injury or trauma; Fall; Blunt trauma (contusions or hematomas); Orbit/periorbital; Left TECHNIQUE: Imaging protocol: Computed tomography images of the face without contrast. Radiation optimization: All CT scans at this facility use at least one of these dose optimization techniques: automated exposure control; mA and/or kV adjustment per patient size (includes targeted exams where dose is matched to clinical indication); or iterative reconstruction. COMPARISON: No relevant prior studies available. RADIATION DOSE METRICS: Total DLP (mGy-cm): 693.78 FINDINGS: Orbital cavity: Orbital contents appear intact/unremarkable. Bones/joints: Mildly displaced fracture of the left side of the nasal bone. No definite acute fracture of the nasal septum. No definite evidence of other acute facial bone/orbital fracture. Severe degenerative changes/deformity involving the left mandibular condyle. Paranasal sinuses: Mild mucosal thickening in the maxillary sinuses. Included paranasal sinuses otherwise appear essentially clear. Soft tissues: Prominent left periorbital and supraorbital soft tissue swelling/hematoma. CT/CT facial bones wo con* [id number] IMPRESSION: 1. Mildly displaced fracture of the left side of the nasal bone. 2. No other definite acute facial bone/orbital fracture by CT. 3. Other findings discussed above. Radiation Dose CTDIVOL = (mGy): DLP = 693.78 (mGy-cm)
--- NOTE | 2021-04-15 04:32 | CTR_ITS ---
PROCEDURE INFORMATION: Exam: CT Cervical Spine Without Contrast Exam date and time: 04/15/2021 4:32 AM Age: 81 years old Clinical indication: Injury or trauma; Fall; Blunt trauma TECHNIQUE: Imaging protocol: Computed tomography images of the cervical spine without contrast. Radiation optimization: All CT scans at this facility use at least one of these dose optimization techniques: automated exposure control; mA and/or kV adjustment per patient size (includes targeted exams where dose is matched to clinical indication); or iterative reconstruction. COMPARISON: No relevant prior studies available. RADIATION DOSE METRICS: Total DLP (mGy-cm): 339.64 FINDINGS: Bones/joints: On axial CT images, no definite acute fracture is visible. Sagittal and coronal reconstructions show no acute fracture or subluxation. Mild to moderate degenerative disc changes and facet joint arthritis at multiple levels. Discs/Spinal canal/Neural foramina: Mild to moderate bulging discs suspected at C3-C4 and C4-C5. No definite/significant focal disc herniation by CT, although MRI could be more specific/sensitive if clinically indicated. Lungs: No significant acute finding in the upper lungs. CT/CT cervical spin wo con* [id number] IMPRESSION: 1. No definite acute fracture or subluxation by CT. 2. Other findings discussed above. Radiation Dose CTDIVOL = (mGy): DLP = 339.64 (mGy-cm)
[2021-04-15 04:33] VITALS: BP 211/86; PULSE 78; RESP 16; TEMP 37; O2SAT 97; BMI 27.3
--- NOTE | 2021-04-15 04:36 | W.ED.FALL ---
HPI - Fall General: Chief Complaint: Head Injury Stated Complaint: FALL Time Seen by Provider: 04/15/21 04:32 Source: EMS Mode of arrival: EMS Limitations: altered mental status History of Present Illness: HPI Narrative: 81-year-old female is here from senior living after a fall patient tripped over her feet roughly an hour ago from the nursing station and fell headfirst she has a large hematoma to her left forehead patient has dementia at baseline difficult to get much history from her she denies pain elsewhere besides her head. She does have an interupper lip laceration denies any extremity pain. Review of Systems General: Reports: ROS unobtainable due to mental status PFSH ED PFSH: Medical History Dementia Physical Exam Const: COMMON NORMALS: no acute distress and healthy appearing; negative for patient oriented x3 HENMT: COMMON NORMALS: normocephalic HEAD & SCALP: normocephalic OTHER: Large hematoma the left forehead less than 1 cm laceration to inner upper lip does not go through and through Eye: COMMON NORMALS: Equal, round and reactive pupils present and EOMs intact bilaterally PUPIL: Yes Equal, round and reactive pupils present Neck/C-Spine: COMMON NORMALS: full ROM and supple Chest: COMMONS NORMALS: normal inspection of the chest and normal palpation of entire chest wall Resp: COMMON NORMALS: normal respiratory effort, No retractions, No use of accessory muscles and clear to auscultation bilaterally AUSCULTATION: clear to auscultation bilaterally Cardio: COMMON NORMALS: regular rate, regular rhythm and No murmurs present (Cardio) RATE: regular rate RHYTHM: regular rhythm GI: COMMON NORMALS: Normal to inspection, nondistended, normoactive bowel sounds present, Soft to palpation, non-tender and no masses PALPATION: Yes Soft to palpation Extremity: COMMON NORMALS: normal to inspection and full ROM Neuro: COMMON NORMALS: moves all extremities and no focal motor deficits; negative for patient oriented x3 Psych: COMMON NORMALS: cooperative Skin: COMMON NORMALS: no rashes or lesions noted and no wounds GENERAL SKIN EXAM: no rashes or lesions noted Course Vital Signs: Vital signs: Vital Signs Temperature 98.6 F 04/15/21 04:33 Pulse Rate 63 04/15/21 05:31 Respiratory Rate 16 04/15/21 05:31 Blood Pressure 173/68 04/15/21 05:31 Pulse Oximetry 94 04/15/21 05:31 MDM - Fall MDM Narrative: Medical decision making narrative: pt presents here with a fall from tripping. Pt CT here shows a nasal fx. Ct head and c spine show no acute findings. She has no other signs of injury. She is stable for discharge and is to follow up with pcp and return if worsening. Patient does have an inner lip laceration that is not through and through and does not require any sutures Imaging Data^: CT Head: Radiologist's impression: [facility] [place] [address] CT Scan Report Signed Patient: Maria Ines Jackson Unit #: [id number] : 1940 Age/Sex: 81 / F ADM Date: 04/15/21 Loc: ER Room/Bed: Attending Dr: Ordering Provider/Ordering MD: Karen Mckeon MD Date of Service: 04/15/21 Procedure(s): CT head wo con* [id number] Accession Number(s): [id number] Report Number: [id number] PROCEDURE INFORMATION: Exam: CT Head Without Contrast Exam date and time: 04/15/2021 4:32 AM Age: 81 years old Clinical indication: Injury or trauma; Fall; Blunt trauma (contusions or hematomas); Consciousness not specified TECHNIQUE: Imaging protocol: Computed tomography of the head without contrast. Radiation optimization: All CT scans at this facility use at least one of these dose optimization techniques: automated exposure control; mA and/or kV adjustment per patient size (includes targeted exams where dose is matched to clinical indication); or iterative reconstruction. COMPARISON: CT head wo con* [id number] 02/26/2021 8:24 PM RADIATION DOSE METRICS: Total DLP (mGy-cm): 849.87 FINDINGS: Brain: No acute intracranial hemorrhage or mass effect. There is decreased attenuation in the periventricular white matter, likely from microvascular disease. There is a very small old lacunar infarct in the right caudate nucleus. No definite acute infarct by CT. Cerebral ventricles: Ventricle size is normal for age. Paranasal sinuses: Mild mucosal thickening in the included upper maxillary sinuses. Included paranasal sinuses otherwise appear essentially clear. Mastoid air cells: No significant acute finding. Vasculature: Prominent vascular calcifications in the internal carotid arteries. Bones/joints: No definite acute skull fracture. Soft tissues: Prominent left periorbital soft tissue swelling CT/CT head wo con* [id number] IMPRESSION: 1. No acute intracranial hemorrhage or mass effect. 2. 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 3. Other findings discussed above. 4. Please see subsequent CT Facial Bone report for complete evaluation of the facial bones. Radiation Dose CTDIVOL = (mGy): DLP = 849.87 (mGy-cm) Dictated By: Cornell Geller MD Signed By: Cornell Geller MD Signed Date/Time: 04/15/21 0500 DD/ 043 ct c spine: Radiologist's impression: [address] [address] [address] Scan Report Signed Patient: Maria Ines Jackson Unit #: [id number] : 1940 Age/Sex: 81 / F ADM Date: 04/15/21 Loc: ER Room/Bed: Attending Dr: Ordering Provider/Ordering MD: Karen Mckeon MD Date of Service: 04/15/21 Procedure(s): CT cervical spin wo con* [id number] Accession Number(s): [id number] Report Number: [id number] PROCEDURE INFORMATION: Exam: CT Cervical Spine Without Contrast Exam date and time: 04/15/2021 4:32 AM Age: 81 years old Clinical indication: Injury or trauma; Fall; Blunt trauma TECHNIQUE: Imaging protocol: Computed tomography images of the cervical spine without contrast. Radiation optimization: All CT scans at this facility use at least one of these dose optimization techniques: automated exposure control; mA and/or kV adjustment per patient size (includes targeted exams where dose is matched to clinical indication); or iterative reconstruction. COMPARISON: No relevant prior studies available. RADIATION DOSE METRICS: Total DLP (mGy-cm): 339.64 FINDINGS: Bones/joints: On axial CT images, no definite acute fracture is visible. Sagittal and coronal reconstructions show no acute fracture or subluxation. Mild to moderate degenerative disc changes and facet joint arthritis at multiple levels. Discs/Spinal canal/Neural foramina: Mild to moderate bulging discs suspected at C3-C4 and C4-C5. No definite/significant focal disc herniation by CT, although MRI could be more specific/sensitive if clinically indicated. Lungs: No significant acute finding in the upper lungs. CT/CT cervical spin wo con* [id number] IMPRESSION: 1. No definite acute fracture or subluxation by CT. 2. Other findings discussed above. Radiation Dose CTDIVOL = (mGy): DLP = 339.64 (mGy-cm) Dictated By: Cornell Geller MD Signed By: Cornell Geller MD Signed Date/Time: 04/15/[address]: Attestation: I personally reviewed and interpreted this imaging study as follows: Radiologist's impression: [address] [address] [address] Scan Report Signed Patient: Maria Ines Jackson Unit #: [id number] : 1940 Age/Sex: 81 / F ADM Date: 04/15/21 Loc: ER Room/Bed: Attending Dr: Ordering Provider/Ordering MD: Karen Mckeon MD Date of Service: 04/15/21 Procedure(s): CT facial bones wo con* [id number] Accession Number(s): [id number] Report Number: [id number] PROCEDURE INFORMATION: Exam: CT Maxillofacial Without Contrast Exam date and time: 04/15/2021 4:32 AM Age: 81 years old Clinical indication: Injury or trauma; Fall; Blunt trauma (contusions or hematomas); Orbit/periorbital; Left TECHNIQUE: Imaging protocol: Computed tomography images of the face without contrast. Radiation optimization: All CT scans at this facility use at least one of these dose optimization techniques: automated exposure control; mA and/or kV adjustment per patient size (includes targeted exams where dose is matched to clinical indication); or iterative reconstruction. COMPARISON: No relevant prior studies available. RADIATION DOSE METRICS: Total DLP (mGy-cm): 693.78 FINDINGS: Orbital cavity: Orbital contents appear intact/unremarkable. Bones/joints: Mildly displaced fracture of the left side of the nasal bone. No definite acute fracture of the nasal septum. No definite evidence of other acute facial bone/orbital fracture. Severe degenerative changes/deformity involving the left mandibular condyle. Paranasal sinuses: Mild mucosal thickening in the maxillary sinuses. Included paranasal sinuses otherwise appear essentially clear. Soft tissues: Prominent left periorbital and supraorbital soft tissue swelling/hematoma. CT/CT facial bones wo con* [id number] IMPRESSION: 1. Mildly displaced fracture of the left side of the nasal bone. 2. No other definite acute facial bone/orbital fracture by CT. 3. Other findings discussed above. Radiation Dose CTDIVOL = (mGy): DLP = 693.78 (mGy-cm) Dictated By: Cornell Geller MD Signed By: Cornell Geller MD Signed Date/Time: 04/15/21519 DD/ 1 Discharge Plan Discharge Patient Disposition: Home Clinical Impression: Closed head injury, Fracture of nasal bone Fall Qualifiers: Encounter type: initial encounter Qualified Code(s): W19.XXXA - Unspecified fall, initial encounter Condition: Stable Prescriptions: No Action metformin 500 mg Tablet 500 mg PO DAILY@08 RF: 0 sertraline 50 mg Tablet 50 mg PO DAILY@08 RF: 0 memantine 5 mg Tablet 5 mg PO DAILY@0800 RF: 0 alprazolam 0.5 mg Tablet 0.5 mg PO BID PRN (Reason: Anxiety) RF: 0 Lorazepam Intensol 2 mg/mL Concentrate See Rx Instructions .ROUTE .COMPLEX RF: 0 olanzapine 5 mg Tablet,Disintegrating 10 mg PO DAILY@08 RF: 0 lorazepam 0.5 mg Tablet 0.5 mg PO Q8H PRN (Reason: Anxiety) RF: 0 haloperidol decanoate 50 mg/mL Solution 50 mg IM Q14D RF: 0 ciprofloxacin HCl 500 mg tablet 500 mg PO BID Qty: 14 RF: 0 lamotrigine 25 mg Tablet 100 mg PO TID@08,14,20 30 Days Qty: 90 RF: 0 Discharge Orders: Discharge ED (Routine); Ordered 04/15/21 Ordered By: Karen Mckeon Referrals: Jae Melgar MD [Primary Care Provider] - 1-3 days Discharge Diet: Advance as tolerated Discharge Activity: Resume usual activity Patient Instructions: Nasal Fracture (ED), Head Injury (ED) Coding Level of Care Code ED Coordinate 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
[2021-04-15] MEDS: labetalol 5 mg/mL SDV 20mL 10 MG IVP (05:09)
[2021-04-15 05:31] VITALS: BP 173/68; PULSE 63; RESP 16; O2SAT 94
[2021-04-15 06:34] VITALS: BP 159/71; PULSE 63; RESP 16; O2SAT 95
== END 2021-04-15 06:38 | disposition home or self-care (01) ==
PROVIDERS: Emergency Provider Emergency Medicine; PCP Family Medicine
DX: S09.8XXA Other specified injuries of head, initial encounter (principal); S02.2XXA Fracture of nasal bones, initial encounter for closed fracture; F03.90 Unspecified dementia, unspecified severity, without behavioral disturbance, psychotic disturbance, mood disturbance, and anxiety; W01.0XXA Fall on same level from slipping, tripping and stumbling without subsequent striking against object, initial encounter
CPT/HCPCS: 70450; 70486; 72125; 96374; 99283; J3490